=== PATIENT | female | born 1935 | race Caucasian/White ===

== ENCOUNTER → 2023-12-09 18:14 | Outpatient (REF) | payer OTHER, SELFPAY | LOC: PAVMRI 18:14 | PROVIDERS: ATTENDING PHYSICIAN Physician Assistant Medical; FAMILY PHYSICIAN Family Medicine | DX: M54.16 Radiculopathy, lumbar region (principal) | CPT/HCPCS: 72148 ==

== ENCOUNTER → 2023-12-20 10:43 | Outpatient (REF) | payer OTHER, SELFPAY ==
[2023-12-22 10:49] LABS: CA 19-9 14 U/mL (<=35)
[2023-12-22 11:08] LABS: CA 27-29 14.6 U/mL (<=39.0)
== END ==
LOC: REG 10:43
PROVIDERS: ATTENDING PHYSICIAN Nurse Practitioner Primary Care
DX: C50.811 Malignant neoplasm of overlapping sites of right female breast (principal); Z79.811 Long term (current) use of aromatase inhibitors
CPT/HCPCS: 36415; 86300; 86301

== ENCOUNTER 2024-01-01 09:35 | Emergency (ER) | payer OTHER, SELFPAY ==
[2024-01-01 09:37] VITALS: BP 125/60
--- NOTE | 2024-01-01 09:54 | ED.GENMED ---
History of Present Illness
General
Chief Complaint: Breathing Problem
Source: patient
Exam Limitations: none
Time Seen by Provider: 01/01/24 09:41
Travel History
Have you had any contact with someone who has COVID-19?: No
Do you have any symptoms of coronavirus? Fever > 100 degrees, chills, cough, shortness of breath, sore throat, loss of taste or smell, muscle aches, or headache?: No
History of Present Illness
History of Present Illness:
88 year old female presents with complaints of fatigue, sob, night sweats, myalgias x 4-days. She was presumed to have the flu and was started on Tamiflu. She has been on this for 3 days but seems to be getting worse. Prior to the onset of the
symptoms she had urinary frequency urgency and dysuria. She was started on Macrobid for UTI. No other complaints at this time. She lives independently and is accompanied by daughter
Past History
Past History
ED Past Medical History: Asthma, Cancer (Breast Ca), HTN and Hypercholesterolemia
ED Past Surgical History: None
Social History
Tobacco: Non-smoker (Has been exposed to secondhand smoke however)
Alcohol: Occasional
Personal:
Living: with family
Family History
Family History: CAD; Negative Diabetes, Hypertension, Asthma or Cancer
Phy Exam
Physical Exam
Physical Exam:
General: Well-appearing female no acute respiratory distress
HEENT: Normocephalic atraumatic neck is supple mucosa moist
Heart: Regular rate and rhythm no murmurs
Lungs: Clear to auscultation bilaterally no wheezing
Abdomen is soft nontender nondistended
Extremities: No cyanosis
Scores
Heart Failure Risk
Heart Failure Risk Score: Not Applicable
Course
Orders/Labs/Results
Orders:
Orders
01/01/24 09:51
Electrocardiogram (*1) Urgent
Reason for Study: Shortness of Breath
EKG- Treatment ONCE
CR Chest - 2 Views Urgent
Comment:
Reason For Exam: sob
01/01/24 09:55
COVID-19 Antigen Urgent
Source: Nasal Swab
Complete Blood Count/With Diff Urgent
Comprehensive Metabolic Panel Urgent
NT-proBNP Urgent
Influenza A+B Rapid Molecular Urgent
ANDER Source: Nasal Swab
Specimen Description:
01/01/24 10:17
Urinalysis Reflex To Culture Urgent
Date Specimen was Collected: 01/01/24
Time Specimen was Collected: 10:13
Urine Microscopic Reflex Cult Urgent
Urine Culture Urgent
ANDER Source: U
Specimen Description:
Date Specimen was Collected: 01/01/24
Time Specimen was Collected: 10:13
Abnormal Lab Results
01/01/24 01/01/24
09:55 10:17
RBC 3.86 L 10^6/uL
(4.20-5.40)
Hct 35.6 L %
(37.0-47.0)
MCH 31.3 H pg
(27.0-31.0)
Absolute Lymphs (auto) 1.1 L 10^3/uL
(1.2-3.4)
Absolute Eos (auto) 0.8 H 10^3/uL
(0-0.7)
Lymphocytes % 12.9 L %
(20.5-51.1)
Eosinophils % 8.8 H %
(0-6)
Potassium 3.1 L mmol/L
(3.5-5.1)
Glucose 126 H mg/dl
(70-99)
Albumin 3.4 L g/dl
(3.5-5.0)
Urine Ketones 1+ A
(Negative)
Urine Bilirubin 1+ A
(Negative)
Leukocyte Esterase Rfl Trace A
(Negative)
Urine RBC 3-6 A /HPF
(0-2)
Urine WBC (Reflex) 11-15 A /HPF
(0-5)
01/01/24 09:55
01/01/24 09:55
Vital Signs
Initial and Last Documented VS:
Initial Vital Signs
Temp Pulse Resp BP Pulse Ox
98.1 F 97 16 125/60 94
01/01/24 09:37 01/01/24 09:37 01/01/24 09:37 01/01/24 09:37 01/01/24 09:37
Last Documented Vital Signs
Temp Pulse Resp BP Pulse Ox
98.1 F 76 16 102/62 96
01/01/24 09:37 01/01/24 12:00 01/01/24 12:00 01/01/24 11:09 01/01/24 12:00
MDM/Problems Addressed
Differential Diagnosis Includes:
Fatigue myalgias shortness of breath cough urinary symptoms. Will check for COVID and flu. Consider ongoing UTI. Also notes night sweats with the cough. Will check x-ray to evaluate for pneumonia.
*Critical Care Note
Total Time (30-74mins, 75-104mins- exclusive of procedures): Not Applicable
Update Note
Update Note:
Chest x-ray shows possible left basilar pneumonia and mild pulmonary edema. BNP elevated. Clinically the patient does not look volume overloaded. She had an echocardiogram done about 11 months ago which demonstrated an EF of 70% and diastolic
function was indeterminate. Clinically she presents more as an infectious source with cough myalgias night sweats. She is not hypoxic. We ambulated her she did not drop. She is in no respiratory distress white blood cell count is normal. We
decided on having her go home with oral antibiotics. She can stop her Macrobid and Tamiflu.
ED Attending Note
-
Portions of this chart may have been created with voice recognition software.� Occasional wrong word or��sound alike� substitutions may have occurred due to the inherent limitations of voice recognition software.
Discharge Plan
Departure
Patient Disposition: Home (Routine Discharge)
Date of Disposition: 01/01/24
Time of Disposition: 12:29
Patient with high blood pressure during this ER visit?: No
Discharge Problem:
Pneumonia
Instructions: Shortness of Breath (Dyspnea) (DC)
Prescriptions:
New
cefdinir 300 mg capsule
300 mg PO BID Qty: 14 0RF
azithromycin [Zithromax] 250 mg tablet
250 mg PO DAILY Qty: 6 0RF
No Action
simvastatin 20 MG tablet
20 mg PO DAILY
escitalopram oxalate 20 MG tablet
20 mg PO DAILY
ascorbic acid (vitamin C) [Vitamin C] 1,000 MG tablet
1,000 mg PO DAILY
acetaminophen [Tylenol Extra Strength] 500 MG tablet
1,000 mg PO PRN PRN (Reason: pain)
lybrenwd-xsc-KW-lycopen-lutein [Centrum Silver] 1 EACH tablet
1 ea PO DAILY
glucosam-chond mu-wlttex-us ac 1 EACH capsule
1 cap PO DAILY
calcium carbonate [Calcium 600] 600 MG tablet
1,200 mg PO DAILY
diltiazem HCl 180 MG capsule,extended release 24hr
180 mg PO QPM Qty: 0 0RF
lisinopril 20 MG tablet
20 mg PO DAILY Qty: 0 0RF
Rx Instructions:
hold sbp <130
docusate sodium 100 MG capsule
100 mg PO BID Qty: 0 0RF
hydrochlorothiazide 25 MG tablet
25 mg PO DAILY Qty: 0 0RF
Rx Instructions:
hold sbp <130
cholecalciferol (vitamin D3) 1,000 UNITS tablet
5,000 units PO DAILY Qty: 0 0RF
trazodone 50 MG tablet
50 mg PO HS PRN (Reason: insomnia)
Referrals:
Sean Salazar MD [Family Provider] -
Activity Restrictions/Additional Instructions:
Drink plenty of fluids. Rest. Use antibiotics as directed. You should stop the nitrofurantoin as well as the Tamiflu and started 2 new prescriptions. Return here for increasing shortness of breath fever vomiting or other concerning findings.
Interventions
Interventions:
*Risk Screen - Suicide Last Done: 01/01/24 11:07
*General Assessment Last Done: 01/01/24 11:07
*Neglect/Abuse Screening Last Done: 01/01/24 11:07
ED- Fall Risk Assessment Last Done: 01/01/24 11:07
*ED COVID-19 Vaccine History Last Done: 01/01/24 09:37
ED- Cardiac Assessment Last Done: 01/01/24 11:07
ED- Pulmonary Assessment Last Done: 01/01/24 11:07
[2024-01-01 10:09] LABS: % Basophils 0.9 % (0-2); % Eosinophils 8.8 % (0-6); % Immature Granulocytes 0.2 % (0-0.5); % Lymphocytes 12.9 % (20.5-51.1); % Monocytes 7.3 % (1.7-9.3); % Neutrophils 69.9 % (42.2-75.2); Absolute Basophils 0.1 10^3/uL (0-0.2); Absolute Eosinophils 0.8 10^3/uL (0-0.7); Absolute Lymphocytes 1.1 10^3/uL (1.2-3.4); Absolute Monocytes 0.6 10^3/uL (0.1-0.6); Hematocrit 35.6 % (37.0-47.0); Hemoglobin 12.1 g/dL (12.0-16.0); Mean Corpuscular Hgb 31.3 pg (27.0-31.0); Mean Corpuscular Volume 92.2 fL (81.0-99.0); Mean Platelet Volume 9.6 fL (7.4-10.4); Nucleated Red Blood Cells % 0 %; Platelet Count 275 10^3/uL (130-400); Red Blood Cell Count 3.86 10^6/uL (4.20-5.40); Red Cell Dist. Width 12.1 % (11.5-14.5); White Blood Cell Count 8.6 10^3/uL (4.8-10.8)
[2024-01-01 10:21] LABS: COVID-19 Antigen Negative (Negative)
[2024-01-01 10:24] LABS: ALT (SGPT) 21 U/L (0-35); AST (SGOT) 28 U/L (14-36); Albumin 3.4 g/dl (3.5-5.0); Alkaline Phosphatase 68 U/L (38-126); Blood Urea Nitrogen 15 mg/dl (7-17); Calcium 8.6 mg/dl (8.4-10.2); Carbon Dioxide 27 mmol/L (22-30); Chloride 102 mmol/L (98-107); Glucose 126 mg/dl (70-99); Potassium 3.1 mmol/L (3.5-5.1); Sodium 135 mmol/L (135-145); Total Bilirubin 0.7 mg/dl (0.2-1.3); Total Protein 6.4 g/dl (6.3-8.2); eGFR > 60.00
[2024-01-01 10:29] LABS: NT-proBNP 2160 pg/ml
[2024-01-01 11:07] VITALS: BMI 24.3
[2024-01-01 11:09] VITALS: BP 102/62
[2024-01-01 11:11] LABS: Urine Albumin Negative (Neg - Trace); Urine Bilirubin 1+ (Negative); Urine Character Clear (Clear); Urine Color Yellow; Urine Glucose Negative (Negative); Urine Ketone 1+ (Negative); Urine Leukocyte Trace (Negative); Urine Nitrite Negative (Negative); Urine Occult Blood Negative (Negative); Urine Urobilinogen Negative (Neg - 1+)
== END 2024-01-01 13:30 | disposition home or self-care (01) ==
LOC: EMR 09:35
PROVIDERS: Physician Assistant; EMERGENCY PHYSICIAN Emergency Medicine; FAMILY PHYSICIAN Family Medicine
DX: J18.9 Pneumonia, unspecified organism (principal); Z11.52 Encounter for screening for COVID-19
CPT/HCPCS: 99285; 71046; 80053; 81003; 81015; 83880; 85025; 87086; 87502; 87811; 93005

== ENCOUNTER → 2024-03-26 08:51 | Outpatient (REF) | payer OTHER, SELFPAY ==
[2024-03-26 10:24] LABS: Urine Albumin Negative (Neg - Trace); Urine Bilirubin Negative (Negative); Urine Character Clear (Clear); Urine Color Yellow; Urine Glucose Negative (Negative); Urine Ketone Negative (Negative); Urine Leukocyte 1+ (Negative); Urine Nitrite Negative (Negative); Urine Occult Blood Negative (Negative); Urine Specific Gravity 1.015 (<1.030); Urine Urobilinogen Negative (Neg - 1+)
[2024-03-26 10:26] LABS: % Eosinophils 3.3 % (0-6); % Lymphocytes 28.6 % (20.5-51.1); % Monocytes 6.7 % (1.7-9.3); % Neutrophils 60.4 % (42.2-75.2); Absolute Basophils 0.1 10^3/uL (0-0.2); Absolute Eosinophils 0.2 10^3/uL (0-0.7); Absolute Lymphocytes 1.4 10^3/uL (1.2-3.4); Absolute Monocytes 0.3 10^3/uL (0.1-0.6); Hematocrit 37.6 % (37.0-47.0); Hemoglobin 12.4 g/dL (12.0-16.0); Mean Corpuscular Hgb 31.7 pg (27.0-31.0); Mean Corpuscular Volume 96.2 fL (81.0-99.0); Mean Platelet Volume 10.3 fL (7.4-10.4); Nucleated Red Blood Cells % 0 %; Platelet Count 225 10^3/uL (130-400); Red Blood Cell Count 3.91 10^6/uL (4.20-5.40); Red Cell Dist. Width 12.8 % (11.5-14.5); White Blood Cell Count 4.9 10^3/uL (4.8-10.8)
[2024-03-26 10:58] LABS: Erythrocyte Sed Rate 8 mm/hour (0-20)
[2024-03-26 11:09] LABS: Urine Mucus Few
[2024-03-26 11:10] LABS: Urine Squamous Cell >30 /LPF (Few)
[2024-03-26 11:11] LABS: Urine Amorphous Seen; Urine Red Blood Cell 0-2 /HPF (0-2)
[2024-03-26 11:12] LABS: ALT (SGPT) 17 U/L (0-35); AST (SGOT) 29 U/L (14-36); Alkaline Phosphatase 63 U/L (38-126); Blood Urea Nitrogen 17 mg/dl (7-17); Calcium 9.1 mg/dl (8.4-10.2); Carbon Dioxide 30 mmol/L (22-30); Chloride 102 mmol/L (98-107); Creatine Phosphokinase 66 U/L (30-135); Glucose 95 mg/dl (70-99); HDL Cholesterol 69 mg/dl; LDL Cholesterol, Calculated 81 mg/dl; Potassium 4.2 mmol/L (3.5-5.1); Sodium 139 mmol/L (135-145); Total Bilirubin 0.5 mg/dl (0.2-1.3); Total Cholesterol 165 mg/dl (50-199); Total Protein 7.1 g/dl (6.3-8.2); Triglyceride 79 mg/dl (10-149); Uric Acid 4.9 mg/dl (2.5-6.2); Urine Bacteria Few (Negative); Very Low Density Lipoprotein 15 mg/dl (0-30); eGFR > 60.00
[2024-03-26 11:24] LABS: Free T4 1.05 ng/dl (0.78-2.19); Vitamin D, 25-OH*** 35.7 ng/mL (30-80)
[2024-03-26 11:38] LABS: TSH 2.18 uIU/ml (0.47-4.68)
[2024-03-26 11:50] LABS: Glycohemoglobin (HgbA1c) 5.5 % (4.0-5.6)
[2024-03-26 21:15] LABS: Hepatitis B Surface Antigen Negative (Negative)
[2024-03-26 21:33] LABS: Hepatitis B Core Ab, Total Negative (Negative); Hepatitis B Surface Antibody Negative; Hepatitis C Antibody Negative (Negative)
[2024-03-27 14:26] LABS: CRP, Highly Sensitive 0.53 mg/L
[2024-03-27 18:26] LABS: Apolipoprotein B 79 mg/dL (60-117)
== END ==
LOC: REG 08:51
PROVIDERS: ATTENDING PHYSICIAN Internal Medicine Cardiovascular Disease; FAMILY PHYSICIAN Family Medicine
DX: R89.9 Unspecified abnormal finding in specimens from other organs, systems and tissues (principal); E78.2 Mixed hyperlipidemia; Z00.00 Encounter for general adult medical examination without abnormal findings; I25.10 Atherosclerotic heart disease of native coronary artery without angina pectoris; E78.00 Pure hypercholesterolemia, unspecified; I10 Essential (primary) hypertension; E55.9 Vitamin D deficiency, unspecified; Z13.818 Encounter for screening for other digestive system disorders; Z11.59 Encounter for screening for other viral diseases
CPT/HCPCS: 36415; 80053; 80061; 81003; 81015; 82172; 82306; 82550; 83036; 84439; 84443; 84550; 85025; 85652; 86141; 86704; 86706; 86803; 87340

== ENCOUNTER → 2024-06-11 13:38 | Outpatient (REF) | payer OTHER, SELFPAY | LOC: MRI 3T 13:38 | PROVIDERS: ATTENDING PHYSICIAN Physician Assistant Surgical; FAMILY PHYSICIAN Family Medicine | DX: M25.562 Pain in left knee (principal) | CPT/HCPCS: 73721 ==

== ENCOUNTER → 2024-07-23 12:39 | Outpatient (REF) | payer OTHER, SELFPAY | LOC: WDC 12:39 | PROVIDERS: ATTENDING PHYSICIAN Family Medicine | DX: Z12.31 Encounter for screening mammogram for malignant neoplasm of breast (principal) | CPT/HCPCS: 77063; 77067 ==

== ENCOUNTER → 2024-09-08 07:49 | Outpatient (REF) | payer OTHER, SELFPAY ==
[2024-09-08 08:49] LABS: % Basophils 0.9 % (0-2); % Eosinophils 3.7 % (0-6); % Immature Granulocytes 0.2 % (0-0.5); % Lymphocytes 27.6 % (20.5-51.1); % Monocytes 7.4 % (1.7-9.3); % Neutrophils 60.2 % (42.2-75.2); Absolute Basophils 0.1 10^3/uL (0-0.2); Absolute Eosinophils 0.2 10^3/uL (0-0.7); Absolute Lymphocytes 1.5 10^3/uL (1.2-3.4); Absolute Monocytes 0.4 10^3/uL (0.1-0.6); Absolute Neutrophils 3.3 10^3/uL (1.4-6.5); Hematocrit 34.6 % (37.0-47.0); Mean Corp Hgb Conc. 34.7 g/dL (33.0-37.0); Mean Corpuscular Hgb 31.9 pg (27.0-31.0); Mean Platelet Volume 10.1 fL (7.4-10.4); Nucleated Red Blood Cells % 0 %; Platelet Count 229 10^3/uL (130-400); Red Blood Cell Count 3.76 10^6/uL (4.20-5.40); Red Cell Dist. Width 12.1 % (11.5-14.5); White Blood Cell Count 5.4 10^3/uL (4.8-10.8)
[2024-09-08 09:28] LABS: ALT (SGPT) 20 U/L (0-35); AST (SGOT) 28 U/L (14-36); Albumin 3.9 g/dl (3.5-5.0); Alkaline Phosphatase 51 U/L (38-126); Blood Urea Nitrogen 20 mg/dl (7-17); Calcium 9.6 mg/dl (8.4-10.2); Carbon Dioxide 29 mmol/L (22-30); Chloride 104 mmol/L (98-107); Glucose 98 mg/dl (70-99); Potassium 5.1 mmol/L (3.5-5.1); Sodium 142 mmol/L (135-145); Total Bilirubin 0.4 mg/dl (0.2-1.3); Total Protein 6.6 g/dl (6.3-8.2); eGFR > 60.00
== END ==
LOC: REG 07:49
PROVIDERS: ATTENDING PHYSICIAN Nurse Practitioner Primary Care; FAMILY PHYSICIAN Family Medicine
DX: C50.811 Malignant neoplasm of overlapping sites of right female breast (principal); Z79.811 Long term (current) use of aromatase inhibitors
CPT/HCPCS: 36415; 80053; 85025

== ENCOUNTER 2024-10-08 20:36 | Inpatient (IN) | payer OTHER, SELFPAY ==
[2024-10-08 16:13] VITALS: BP 117/74
[2024-10-08 16:43] LABS: Urine Albumin Trace (Neg - Trace); Urine Bilirubin Negative (Negative); Urine Character Clear (Clear); Urine Color Yellow; Urine Glucose Negative (Negative); Urine Ketone 1+ (Negative); Urine Leukocyte 2+ (Negative); Urine Nitrite Negative (Negative); Urine Occult Blood Negative (Negative); Urine Specific Gravity 1.015 (<1.030); Urine Urobilinogen Negative (Neg - 1+)
[2024-10-08 16:49] LABS: % Basophils 0.4 % (0-2); % Eosinophils 0.5 % (0-6); % Immature Granulocytes 0.4 % (0-0.5); % Monocytes 3.7 % (1.7-9.3); Absolute Basophils 0.1 10^3/uL (0-0.2); Absolute Eosinophils 0.1 10^3/uL (0-0.7); Absolute Immature Granulocytes 0.1 10^3/uL (0-0.05); Absolute Lymphocytes 0.8 10^3/uL (1.2-3.4); Absolute Monocytes 0.6 10^3/uL (0.1-0.6); Absolute Neutrophils 14.8 10^3/uL (1.4-6.5); Hematocrit 37.4 % (37.0-47.0); Hemoglobin 12.7 g/dL (12.0-16.0); Mean Corpuscular Hgb 31.6 pg (27.0-31.0); Mean Platelet Volume 9.7 fL (7.4-10.4); Nucleated Red Blood Cells % 0 %; Platelet Count 262 10^3/uL (130-400); Red Blood Cell Count 4.02 10^6/uL (4.20-5.40); Red Cell Dist. Width 12.3 % (11.5-14.5); White Blood Cell Count 16.4 10^3/uL (4.8-10.8)
[2024-10-08 16:51] LABS: Urine Mucus Moderate
[2024-10-08 16:52] LABS: Urine Bacteria Moderate (Negative); Urine Red Blood Cell 0-2 /HPF (0-2); Urine White Cell 26-30 /HPF (0-5)
[2024-10-08 16:57] LABS: Lactic Acid 1.4 mmol/L (0.7-2.0)
[2024-10-08 17:05] VITALS: BMI 24.6
[2024-10-08 17:08] LABS: ALT (SGPT) 21 U/L (0-35); AST (SGOT) 29 U/L (14-36); Albumin 4.1 g/dl (3.5-5.0); Alkaline Phosphatase 52 U/L (38-126); Blood Urea Nitrogen 18 mg/dl (7-17); Calcium 8.8 mg/dl (8.4-10.2); Carbon Dioxide 27 mmol/L (22-30); Glucose 138 mg/dl (70-99); Total Bilirubin 0.8 mg/dl (0.2-1.3); Total Protein 6.9 g/dl (6.3-8.2); eGFR > 60.00
--- NOTE | 2024-10-08 17:21 | ED.GENMED ---
History of Present Illness
General
Chief Complaint: Fever
Source: patient and family
Exam Limitations: none
Time Seen by Provider: 10/08/24 16:52
Nursing documentation reviewed up to this point in time: agreed with
History of Present Illness
History of Present Illness:
88-year-old female accompanied by her daughters presents with fever and confusion few days of urinary frequency and urgency saw her PCP started on Macrobid had 2 doses today daughter found her in the bed confused temperature 103 patient is had
bodyaches not as active is normal, some confusion, some mild cough has had a flu and COVID shot apparently no history of kidney stones
Past History
Past History
ED Past Medical History: Asthma, Cancer (Breast Ca), HTN and Hypercholesterolemia
ED Past Surgical History: None
Social History
Tobacco: Non-smoker (Has been exposed to secondhand smoke however)
Alcohol: Occasional
Drug: None
Personal:
Living: with family
Employment: Retired
Family History
Family History: CAD; Negative Diabetes, Hypertension, Asthma or Cancer
Review of Systems
Review of Systems
All Other Systems: Not applicable
Constitutional: Reports fever and fatigue
EENT: Reports no symptoms
Respiratory: Reports cough
Cardiac: Reports no symptoms
ABD/GI: Reports nausea; Denies diarrhea
: Reports frequency, flank pain and urgency
Musculoskeletal: Reports muscle pain
Neurological: Reports weakness
Phy Exam
Physical Exam
Physical Exam:
Physical Exam
General: 88 female warm to touch slightly confused
Neck: Lips are dry
Heart: Tachycardia
Lungs: No wheeze
Abdomen: Nontender no CVAT
Neuro: alert and oriented. no focal neurological deficits
Skin: no rash
Psychiatric: cooperative
Extremities: no edema.
Course
Orders/Labs/Results
Orders:
Orders
12/12/24 16:37
Complete Blood Count/With Diff Urgent
Comprehensive Metabolic Panel Urgent
Lactic Acid Urgent
UA Reflex to Culture [Urinalysis Reflex To Culture] Urgent
Date Specimen was Collected: 10/08/24
Time Specimen was Collected: 16:19
Urine Microscopic Reflex Cult Urgent
Urine Culture Urgent
ANDER Source: U
Specimen Description:
Date Specimen was Collected: 10/08/24
Time Specimen was Collected: 16:19
10/08/24 17:12
Cardiac Monitoring- Treatment ONCE
0.9% Sodium Chloride 1000 ml [Nss] 2,100 ml IV NOW STA
0.9% Sodium Chloride 1000 ml [Nss] 1,000 ml IV BOLUS
CefTRIAXone [Rocephin] 1,000 mg IV NOW STA
Ketorolac [Toradol] 15 mg IV NOW STA
10/08/24 17:13
Electrocardiogram (*1) Urgent
Reason for Study: Other
Other Reason for Exam: sepsis
CT Abd/pel Without Iv Or Oral Urgent
Comment:
Reason For Exam: uro sepsis roland pain
EKG- Treatment ONCE
CR Chest - 2 Views Urgent
Comment:
Reason For Exam: fever
10/08/24 17:15
Lactic Acid Q4H
Comment: CANCEL 2nd LACTIC ACID IF 1st LACTIC ACID IS LESS THAN 2
10/08/24 17:31
COVID-19 Antigen Urgent
Source: Nasal Swab
Blood Culture Q30M
ANDER Source: Blood/Venous
Specimen Description:
Blood Culture Q30M
ANDER Source: Blood/Venous
Specimen Description:
Influenza A+B Rapid Molecular Urgent
ANDER Source: Nasal Swab
Specimen Description:
10/08/24 21:15
Lactic Acid Q4H
Comment: CANCEL 2nd LACTIC ACID IF 1st LACTIC ACID IS LESS THAN 2
Abnormal Lab Results
10/08/24
16:37
WBC 16.4 H 10^3/uL
(4.8-10.8)
RBC 4.02 L 10^6/uL
(4.20-5.40)
MCH 31.6 H pg
(27.0-31.0)
Abs Immat Gran (auto) 0.1 H 10^3/uL
(0-0.05)
Absolute Neuts (auto) 14.8 H 10^3/uL
(1.4-6.5)
Absolute Lymphs (auto) 0.8 L 10^3/uL
(1.2-3.4)
Neutrophils % 90.0 H %
(42.2-75.2)
Lymphocytes % 5.0 L %
(20.5-51.1)
BUN 18 H mg/dl
(7-17)
Glucose 138 H mg/dl
(70-99)
Urine Ketones 1+ A
(Negative)
Leukocyte Esterase Rfl 2+ A
(Negative)
Urine WBC (Reflex) 26-30 A /HPF
(0-5)
Urine Bacteria (Reflex) Moderate A
(Negative)
10/08/24 16:37
10/08/24 16:37
Vital Signs
Initial and Last Documented VS:
Initial Vital Signs
Temp Pulse Resp BP Pulse Ox
100.2 F 93 18 117/74 93
10/08/24 16:13 10/08/24 16:13 10/08/24 16:13 10/08/24 16:13 10/08/24 16:13
Last Documented Vital Signs
Temp Pulse Resp BP Pulse Ox
100.2 F 93 18 105/47 91
10/08/24 16:13 10/08/24 16:13 10/08/24 16:13 10/08/24 18:19 10/08/24 17:45
MDM/Problems Addressed
Differential Diagnosis Includes:
UTI pyelonephritis ureteral stone influenza COVID
MDM/Problems Addressed:
Fever
Chronic conditions affecting care:
Hypertension
Acute Exacerbation and/or Progression of Chronic Illness:
Hypertension
*EKG
Interpreted by ED Provider?: Yes
EKG Intrepretation Date: 10/08/24
Interpretation: normal
Comparison EKG: no comparison EKG present
Heart Rate: 88
Rate: normal
Rhythm: sinus
Ischemia: no ischemia
*Railroad Signal Operator Interpretation
Rate: tachycardiac
Interpretation: abnormal
Heart Rate: 112
Rhythm: sinus
*Critical Care Note
Total Time (30-74mins, 75-104mins- exclusive of procedures): 15
Update Note
Update Note:
Update labs are noted white count up cultures are pending viral swabs are negative CT scan no obstruction
ED Attending Note
-
Portions of this chart may have been created with voice recognition software.� Occasional wrong word or��sound alike� substitutions may have occurred due to the inherent limitations of voice recognition software.
Discharge Plan
Departure
Patient Disposition: Admit
Date of Disposition: 10/08/24
Time of Disposition: 18:52
Admit to: Med/Surg
Presentation/result/management discussed w/ accepting MD/DO: Hospitalist
Condition: Fair
Covid-19: Negative COVID-19
Discharge Problem:
Urosepsis
Prescriptions:
No Action
simvastatin 20 MG tablet
20 mg PO DAILY
escitalopram oxalate 20 MG tablet
20 mg PO DAILY
ascorbic acid (vitamin C) [Vitamin C] 1,000 MG tablet
1,000 mg PO DAILY
acetaminophen [Tylenol Extra Strength] 500 MG tablet
1,000 mg PO PRN PRN (Reason: pain)
tbbxnlxc-zor-YR-lycopen-lutein [Centrum Silver] 1 EACH tablet
1 ea PO DAILY
glucosam-chond tk-tgjqzq-ew ac 1 EACH capsule
1 cap PO DAILY
calcium carbonate [Calcium 600] 600 MG tablet
1,200 mg PO DAILY
diltiazem HCl 180 MG capsule,extended release 24hr
180 mg PO QPM Qty: 0 0RF
lisinopril 20 MG tablet
20 mg PO DAILY Qty: 0 0RF
Rx Instructions:
hold sbp <130
docusate sodium 100 MG capsule
100 mg PO BID Qty: 0 0RF
hydrochlorothiazide 25 MG tablet
25 mg PO DAILY Qty: 0 0RF
Rx Instructions:
hold sbp <130
cholecalciferol (vitamin D3) 1,000 UNITS tablet
5,000 units PO DAILY Qty: 0 0RF
trazodone 50 MG tablet
50 mg PO HS PRN (Reason: insomnia)
cefdinir 300 mg capsule
300 mg PO BID Qty: 14 0RF
azithromycin [Zithromax] 250 mg tablet
250 mg PO DAILY Qty: 6 0RF
Referrals:
UNKNOWN - PT DOES,NOT KNOW [Unknown Provider] -
Interventions
Interventions:
*Risk Screen - Suicide Last Done: 10/08/24 16:13
*General Assessment Last Done: 10/08/24 17:05
*Neglect/Abuse Screening Last Done: 10/08/24 17:05
ED- Fall Risk Assessment Last Done: 10/08/24 17:05
*ED COVID-19 Vaccine History Last Done: 10/08/24 17:05
ED- Neurological Assessment Last Done: 10/08/24 17:05
ED-Skin Assessment Last Done: 10/08/24 17:05
Discharge Date and Time
Print Language: AZERBAIJANI
[2024-10-08 17:29] VITALS: BP 103/51
[2024-10-08] MEDS: ROCEPHIN 1000 MG IV (17:39)
[2024-10-08] MEDS: NSS 2100 ML IV (17:39)
[2024-10-08] MEDS: TORADOL 15 MG IV (17:39)
[2024-10-08 18:09] LABS: Chloride 100 mmol/L (98-107); Potassium 3.5 mmol/L (3.5-5.1); Sodium 136 mmol/L (135-145)
[2024-10-08 18:19] VITALS: BP 105/47
--- NOTE | 2024-10-08 19:27 | HPS.HSE ---
Family Physician
-
Family Physician: Sean Salazar
Chief Complaint
-
Rigors, fever, dysuria, urgency, frequency
History of Present Illness
88-year-old female who states yesterday she was baking 500 cookies with her daughters and felt well. This morning she woke up and did not feel right. She took her temperature which was 99.6. She called her daughter who is a nurse who had her take
some Tylenol due to reported body aches. Her daughter went by her house a little after 3 PM to check on her when she arrived at the patient's home the patient had a temperature of 103 she had rigors was complaining of headache was having difficulty
following her commands for example she told her to stay downstairs next thing she knew she was upstairs next to her. Patient is currently awake alert oriented she did have temperature in the ER of 100.2 F she is complaining of some mild dysuria,
urgency and frequency along with rigors earlier and headache. She denies flank pain, hematuria, sore throat, chest pain, palpitations, shortness breath, cough, abdominal pain, nausea, vomiting, diarrhea, urinary symptoms. She has past medical
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
anemia, anxiety, seasonal allergies.
Medical History
Past Medical History
Past Medical History: Reports Other
Additional Past Medical History:
UTIs
HTN
HLD
right sided breast cancer status post right mastectomy 2019 with chemotherapy x 1 year, chronic tamoxifen
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
osteoarthritis
chronic lumbar back pain
iron deficiency anemia
anxiety
seasonal allergies
Past Surgical History: Reports Other
Additional Past Surgical History:
Chronic lumbar pain status post lower back surgery 2004
ORIF right hip September 2004
Left thumb surgery 04/04/2014
Tonsillectomy as child
D&C
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
Right mastectomy secondary to breast cancer
Left chest wall port placed
Social History
Tobacco: Non-smoker
Alcohol: Occasional (Holidays)
Drug: None
Personal: Single
Living: Alone
Employment: Retired
Family History
Family History: Not pertinent
Allergies / Home Medications
Allergies reflects when Allergies were last updated in [employer].
Home Medications with original date entered in [employer]
Allergy/Medication List:
Allergies
Allergy/AdvReac Type Severity Reaction Status Date / Time
adhesive Allergy Rash Verified 10/08/24 16:12
adhesive tape Allergy Rash Verified 10/08/24 16:12
Home Medications
simvastatin 20 mg tablet 20 mg PO DAILY 11/26/11
escitalopram oxalate 10 mg tablet 10 mg PO DAILY 10/08/24
lisinopril 20 mg-hydrochlorothiazide 25 mg tablet 1 tab PO DAILY 10/08/24
loratadine 10 mg tablet (Claritin) 10 mg PO DAILY 10/08/24
nitrofurantoin monohydrate/macrocrystals 100 mg capsule 100 mg PO BID 10/08/24
tamoxifen 20 mg tablet 20 mg PO DAILY 10/08/24
Review of Systems
-
History Source: Patient and Family (2 daughters at bedside)
A 12 point ROS was completed and negative except as noted: Yes
Constitutional: Reports Fever, Fatigue and Chills (Rigors)
EENT: Denies Sore Throat, Mouth Pain or Runny Nose
Respiratory: Denies Cough or Hemoptysis
Cardiac: Denies Chest Pain, Diaphoresis, Palpitations or Syncope
Abdomen/GI: Denies Abdominal Pain, Nausea, Vomiting, Diarrhea, Constipated, Bloody Stools, Black Stools or Anorexia
: Reports Dysuria, Frequency and Urgency; Denies Flank Pain, Incontinence, Difficulty Voiding, Bleeding, Dark Urine or Discharge
Musculoskeletal: Denies Joint Pain or Edema
Skin: Denies Itching or Rash
Neurological: Reports Headache; Denies Dizzy or Weakness
Endocrine: Reports No Symptoms
Hematologic/Lymphatic: Reports No Symptoms
Psych: Reports Calm
Physical Exam
Vital Signs
Vital Signs
Temp Pulse Resp BP Pulse Ox
100.2 F 93 18 105/47 91
10/08/24 16:13 10/08/24 16:13 10/08/24 16:13 10/08/24 18:19 10/08/24 17:45
Physical Exam
General: Comfortable, Conversant and Fever; No Pain or Chills
HEENT: NormoCephalic, Anicteric, Moist mucous membranes, PERRLA, [place] Conjunctivae, No Ptosis and Neck Nontender
Respiratory: Clear; No Wheezes, Rales or Rhonchi
Cardiac: S1/S2 and Regular Rhythm; No Murmur, Rub, Gallop or Peripheral Edema
Breast: Deferred by me
GI: Soft, Non Tender, Non Distended, Normal Bowel Sounds and No Hepatosplenomegaly
Rectal: Deferred by Provider
Genito-urinary: Deferred by me
Musculoskeletal: No Clubbing, No Cyanosis and No Edema
Skin: Warm and Dry; No Rash or Jaundice
Neuro: AO x 3, No Motor Deficits, Nonfocal/grossly intact and No Sensory Deficits; No Slurred Speech, Facial Droop, Tremors or Sedated
Psych: Calm
Laboratory Results
-
10/08/24 16:37
10/08/24 16:37
Laboratory Results
Lactic Acid 1.4 mmol/L (0.7-2.0) 10/08/24 16:37
Total Bilirubin 0.8 mg/dl (0.2-1.3) 10/08/24 16:37
AST 29 U/L (14-36) 10/08/24 16:37
ALT 21 U/L (0-35) 10/08/24 16:37
Alkaline Phosphatase 52 U/L (38-126) 10/08/24 16:37
Data Reviewed
-
Diagnostic Radiology: Report Reviewed by me
CT Scan: Report Reviewed by me
Lab Data: Labs Reviewed by me
Impression/Plan
-
Impression/plan:
Admit to telemetry
#Sepsis secondary to UTI
103/51, HR 93, 100.2 F, 91% RA
-WBC 16.4 with left shift
-Blood cultures x 2
-IV NSS 3 L sepsis bolus given in ER, continue IV NSS 100 cc/h
-IV Rocephin
-Follow blood and urine cultures, CBC, CMP
-Tylenol as needed fever
CT abdomen pelvis without IV or oral contrast:
1. No significant acute abnormality identified in the abdomen or pelvis within limits of unenhanced CT
2. Trace pleural effusion
CXR: No acute cardiopulmonary process
#Hypotension secondary to sepsis/HTN�benign
IV NSS 1000 mg given in ER
-Hold lisinopril/HCTZ
#HLD
-Continue simvastatin 20 mg daily
#Right breast cancer status postmastectomy 2019
#Chronic neuropathy to fingers/feet from chemotherapy after 2019
Patient reports get approximately 1 year of chemotherapy at [facility]
-Continue tamoxifen 20 mg daily
#Osteoarthritis
-Reported meds
#Chronic lumbar back pain
# S/P Chronic lumbar pain status post lower back surgery 2004
#Iron deficiency anemia
Hgb 12.7�stable
#Anxiety
-Continue Lexapro 10 mg daily
#Seasonal allergies
-Continue Claritin 10 mg daily
DVT prophylaxis
Subcu Lovenox
Full code
[2024-10-08 19:34] LABS: COVID-19 Antigen Negative (Negative)
--- NOTE | 2024-10-08 20:10 | W.PN.UPDATE ---
Update Note
Progress Note Update
This is an addendum to the H&P written by Rosalba Barone on 10/08/2024. Patient seen and examined independently with [employer].
88-year-old female with past medical history of breast cancer, hypertension, hypercholesteremia, asthma, presenting with weakness, low-grade fever since yesterday, dysuria. Urinalysis suggestive of UTI. COVID and influenza negative. Chest x-ray
unremarkable. CT abdomen pelvis unremarkable.
IV fluids, urine culture, blood cultures pending. Ceftriaxone. Hold lisinopril/hydrochlorothiazide.
[2024-10-08 21:15] VITALS: BP 120/52; BMI 24.6
[2024-10-08] MEDS: NSS 1000 IV (21:24)
--- NOTE | 2024-10-08 22:00 | PTCARENOTE ---
Pt transported from ED to 3W via stretcher. Pt 1 assist from stretcher to bed, vitals signs obtained and stable, IV NS @100. Pt AAOx3, oriented to room, call molina within reach. Will continue to monitor.
[2024-10-08] MEDS: MELATONIN 5 MG PO (22:28)
[2024-10-08 23:33] VITALS: BP 100/48
[2024-10-09] VITALS (7 sets, daily range): BP systolic 106–130; BP diastolic 52–68; PULSE 89–102; O2SAT 95
[2024-10-09 06:44] LABS: % Basophils 0.5 % (0-2); % Eosinophils 5.1 % (0-6); % Immature Granulocytes 0.6 % (0-0.5); % Lymphocytes 8.6 % (20.5-51.1); % Monocytes 5.1 % (1.7-9.3); % Neutrophils 80.1 % (42.2-75.2); Absolute Basophils 0.1 10^3/uL (0-0.2); Absolute Eosinophils 0.5 10^3/uL (0-0.7); Absolute Immature Granulocytes 0.1 10^3/uL (0-0.05); Absolute Lymphocytes 0.9 10^3/uL (1.2-3.4); Absolute Monocytes 0.5 10^3/uL (0.1-0.6); Absolute Neutrophils 8.4 10^3/uL (1.4-6.5); Hematocrit 30.6 % (37.0-47.0); Hemoglobin 10.2 g/dL (12.0-16.0); Mean Corp Hgb Conc. 33.3 g/dL (33.0-37.0); Mean Corpuscular Hgb 31.5 pg (27.0-31.0); Mean Corpuscular Volume 94.4 fL (81.0-99.0); Mean Platelet Volume 10.3 fL (7.4-10.4); Nucleated Red Blood Cells % 0 %; Platelet Count 205 10^3/uL (130-400); Red Blood Cell Count 3.24 10^6/uL (4.20-5.40); Red Cell Dist. Width 12.6 % (11.5-14.5); White Blood Cell Count 10.5 10^3/uL (4.8-10.8)
[2024-10-09 07:09] LABS: ALT (SGPT) 17 U/L (0-35); AST (SGOT) 21 U/L (14-36); Albumin 2.9 g/dl (3.5-5.0); Alkaline Phosphatase 43 U/L (38-126); Blood Urea Nitrogen 18 mg/dl (7-17); Calcium 7.4 mg/dl (8.4-10.2); Carbon Dioxide 24 mmol/L (22-30); Chloride 104 mmol/L (98-107); Estimated Creatinine Clearance 54 ml/min; Glucose 90 mg/dl (70-99); Potassium 2.9 mmol/L (3.5-5.1); Sodium 137 mmol/L (135-145); Total Bilirubin 0.5 mg/dl (0.2-1.3); Total Protein 5.5 g/dl (6.3-8.2); eGFR > 60.00
[2024-10-09] MEDS: LIPITOR 10 MG PO (08:25)
[2024-10-09] MEDS: LEXAPRO 10 MG PO (08:26)
[2024-10-09] MEDS: NOLVADEX 20 MG PO (08:27)
[2024-10-09] MEDS: CLARITIN 10 MG PO (08:27)
[2024-10-09] MEDS: KCL 40 MEQ PO (08:48)
--- NOTE | 2024-10-09 08:58 | W.PN.UPDATE ---
Update Note
Progress Note Update
I saw and evaluated the patient. I reviewed the resident�s note and agree with findings and plan as documented in the resident�s note.
Denies CP/SOB/abd pain.
Gen: NAD, Awake and alert
Eyes: EOMI, PERRLA, no scleral icterus.
Neck: supple.
CV: RRR, +S1/S2, no m/r/g.
Resp: CTAB, no rales, wheezes, or rhonchi.
Abd: +BS, soft, NT, ND
Skin: No rashes.
Neuro: CN 2-12 intact, non-focal.
Psych: Normal mood and affect.
CT A/P (no contrast):
1. No significant acute abnormality identified in the abdomen or pelvis within limits of unenhanced CT
2. Trace pleural effusion
CXR: No acute cardiopulmonary process
Sepsis secondary to UTI:
-s/p IVF bolus on admission for hypotension
-cont IVFs
-cont Rocephin
-leukocytosis has resolved
-follow BCx/UCx
Other problems:
HLD: cont statin
R breast CA s/p mastectomy/chemo 2019 with resultant chronic peripheral neuropathy: Cont tamoxifen
Osteoarthritis
Chronic lumbar back pain
h/o Fe def anemia
Anxiety: cont Lexapro
DNR/Lovenox
--- NOTE | 2024-10-09 10:53 | W.PN.HOSP.TC ---
Today's Communication/Plan
-
Continue care as before
Follow urine culture, blood culture
Assessment / Plan
Assessment / Plan
88-year-old female presenting with symptomatic UTI and active U/A. Hypotensive on admission. Initial labs showed leukocytosis.
Abd/pelvis CT (10/08):
1. No significant acute abnormality identified in the abdomen or pelvis, within the limits of unenhanced CT, as described above.
2. Trace left pleural effusion.
CXR (10/08):
Stable right upper lobe scarring/posttreatment change. No convincing focal infiltrates. No significant pleural effusions. No visualized pneumothorax.
Chronic conditions prior to admission
Breast cancer status post right mastectomy 2019 with ongoing chemotherapy
Hypertension
Hypercholesteremia
Asthma/Seasonal allergy
Chronic neuropathy
Osteoarthritis
Chronic lumbar back pain
History of iron deficiency anemia
Anxiety
# Sepsis secondary to symptomatic UTI
-urine culture, blood cultures pending
-Receiving IV fluids-Blood pressure maintained-continue to hold lisinopril for now
-Continue Ceftriaxone
-Leukocytosis resolved
-Remains afebrile
#Hypokalemia
-Repleted
#History of HLD
-cont simvastatin
# History of anxiety
-cont Lexapro
# DVT prophylaxis
-Lovenox
# History of breast cancer
- cont Tamoxifen
CODE STATUS: DNR
Anticipated Discharge: Within 24 hours
Subjective/Interval History
-
Date of Service: October 09, 2024
Patient mentions symptoms have improved. Denies urgency or dysuria at this time.
Objective Data
-
Labs:
Laboratory Results
10/09/24
05:27
WBC 10.5
Hgb 10.2 L
Hct 30.6 L
Plt Count 205 D
Sodium 137
Potassium 2.9 L
Chloride 104
Carbon Dioxide 24
BUN 18 H
Creatinine 0.7
Glucose 90
Calcium 7.4 L
Total Bilirubin 0.5
AST 21
ALT 17
Alkaline Phosphatase 43
Vital Signs:
Vital Signs
Temp Pulse Resp BP Pulse Ox
98.5 F 76 18 113/55 95
10/09/24 07:15 10/09/24 07:15 10/09/24 07:15 10/09/24 07:15 10/09/24 07:15
Review of Systems
-
History Source: Patient
All other systems: Reviewed and negative
Physical Exam
-
General: Well Developed and No Apparent Distress
HEENT: Normocephalic, Atraumatic and Moist Mucous Membranes
Respiratory: Clear to Auscultation
Cardiac: Regular Rhythm and S1/S2; Negative Murmur, Rub or Gallop
GI: Soft, Nontender, Nondistended and Normal Bowel Sounds; Negative Organomegaly
Rectal: Deferred by Provider
Musculoskeletal: No Clubbing, No Cyanosis and No Edema
Skin: Negative Rash
Neuro: Nonfocal/Grossly Intact
[2024-10-09] MEDS: NSS 1000 IV (13:15)
[2024-10-09] MEDS: KCL 160 MEQ IV (13:17)
[2024-10-09 15:00] LABS: Magnesium 1.7 mg/dl (1.6-2.3)
--- NOTE | 2024-10-09 16:36 | CM ---
Alert awake oriented patient who lives with her dgt Didi who lives in an apartment with 12 steps to enter .She is independent in all activities of daily living.Offered VN she declined.
She uses a cane
Never had VN/SNF She has done out pt PT in past
Pharmacy [facility]
PCP Dr Salazar
PLAN Home no needs
[2024-10-09] MEDS: LOVENOX 40 MG SC (17:27)
[2024-10-09] MEDS: ROCEPHIN 1000 MG IV (17:54)
[2024-10-09] MEDS: STERILE WATER FOR INJECTION 10 ML IV (17:54)
[2024-10-09] MEDS: DESYREL 50 MG PO (22:34)
[2024-10-10] MEDS: NSS 1000 IV (02:42)
[2024-10-10] MEDS: NSS IV ×2 (02:59→12:22)
[2024-10-10 03:16] VITALS: BP 137/65
[2024-10-10 05:22] VITALS: BMI 25.4
[2024-10-10 05:47] LABS: % Basophils 0.3 % (0-2); % Eosinophils 7.4 % (0-6); % Immature Granulocytes 0.5 % (0-0.5); % Lymphocytes 16.6 % (20.5-51.1); % Monocytes 7.5 % (1.7-9.3); % Neutrophils 67.7 % (42.2-75.2); Absolute Eosinophils 0.5 10^3/uL (0-0.7); Absolute Monocytes 0.5 10^3/uL (0.1-0.6); Absolute Neutrophils 4.2 10^3/uL (1.4-6.5); Hematocrit 29.3 % (37.0-47.0); Hemoglobin 9.6 g/dL (12.0-16.0); Mean Corp Hgb Conc. 32.8 g/dL (33.0-37.0); Mean Corpuscular Hgb 31.1 pg (27.0-31.0); Mean Corpuscular Volume 94.8 fL (81.0-99.0); Mean Platelet Volume 10.3 fL (7.4-10.4); Nucleated Red Blood Cells % 0 %; Platelet Count 202 10^3/uL (130-400); Red Blood Cell Count 3.09 10^6/uL (4.20-5.40); Red Cell Dist. Width 12.7 % (11.5-14.5); White Blood Cell Count 6.3 10^3/uL (4.8-10.8)
[2024-10-10 06:00] VITALS: BMI 25.4
[2024-10-10 06:17] LABS: ALT (SGPT) 16 U/L (0-35); AST (SGOT) 22 U/L (14-36); Albumin 2.8 g/dl (3.5-5.0); Alkaline Phosphatase 39 U/L (38-126); Blood Urea Nitrogen 10 mg/dl (7-17); Calcium 7.4 mg/dl (8.4-10.2); Carbon Dioxide 23 mmol/L (22-30); Chloride 110 mmol/L (98-107); Estimated Creatinine Clearance 63 ml/min; Glucose 93 mg/dl (70-99); Potassium 3.6 mmol/L (3.5-5.1); Sodium 140 mmol/L (135-145); Total Bilirubin 0.2 mg/dl (0.2-1.3); Total Protein 5.4 g/dl (6.3-8.2); eGFR > 60.00
--- NOTE | 2024-10-10 07:57 | W.PN.HOSP.TC ---
Today's Communication/Plan
-
D/c fluids and restart Lisinopril
U?C and B/C NGTD-May switch to oral AB today
Assessment / Plan
Assessment / Plan
88-year-old female presenting with symptomatic UTI and active U/A. Hypotensive on admission. Initial labs showed leukocytosis.
Abd/pelvis CT (10/08):
1. No significant acute abnormality identified in the abdomen or pelvis, within the limits of unenhanced CT, as described above.
2. Trace left pleural effusion.
CXR (10/08):
Stable right upper lobe scarring/posttreatment change. No convincing focal infiltrates. No significant pleural effusions. No visualized pneumothorax.
Chronic conditions prior to admission
Breast cancer status post right mastectomy 2019 with ongoing chemotherapy
Hypertension
Hypercholesteremia
Asthma/Seasonal allergy
Chronic neuropathy
Osteoarthritis
Chronic lumbar back pain
History of iron deficiency anemia
Anxiety
# Sepsis secondary to symptomatic UTI
-urine culture, blood cultures negative after 24 hours
-Receiving IV fluids-Blood pressure maintained-february d/c fluids and restart lisinopril
-Continue Ceftriaxone
-Leukocytosis resolved
-Remains afebrile
#Hypokalemia
- Resolved
-Replete as needed
#History of HLD
-cont simvastatin
# History of anxiety
-cont Lexapro
# DVT prophylaxis
-Lovenox
# History of breast cancer
- cont Tamoxifen
CODE STATUS: DNR
Anticipated Discharge: Within 24 hours
Subjective/Interval History
-
Date of Service: October 10, 2024
Patient does not offer any complaints at this time.
Objective Data
-
Labs:
Laboratory Results
10/10/24
05:02
WBC 6.3
Hgb 9.6 L
Hct 29.3 L
Plt Count 202
Sodium 140
Potassium 3.6
Chloride 110 H
Carbon Dioxide 23
BUN 10
Creatinine 0.6
Glucose 93
Calcium 7.4 L
Total Bilirubin 0.2
AST 22
ALT 16
Alkaline Phosphatase 39
Vital Signs:
Vital Signs
Temp Pulse Resp BP Pulse Ox
99.0 F 80 16 137/65 93
10/10/24 03:16 10/10/24 03:16 10/10/24 03:16 10/10/24 03:16 10/10/24 03:16
I&O
10/09/24 10/10/24 10/11/24
06:59 06:59 06:59
Intake Total 3330 / 3330
Balance 3330 / 3330
Review of Systems
-
History Source: Patient
All other systems: Reviewed and negative
Physical Exam
-
General: Well Developed and No Apparent Distress
HEENT: Normocephalic, Atraumatic and Moist Mucous Membranes
Respiratory: Clear to Auscultation
Cardiac: Regular Rhythm and S1/S2; Negative Murmur, Rub or Gallop
GI: Soft, Nontender, Nondistended and Normal Bowel Sounds; Negative Organomegaly
Rectal: Deferred by Provider
Musculoskeletal: No Clubbing, No Cyanosis and No Edema
Skin: Negative Rash
Neuro: Nonfocal/Grossly Intact
[2024-10-10 08:00] VITALS: BP 140/67
--- NOTE | 2024-10-10 08:20 | W.PN.UPDATE ---
Addendum entered and electronically signed by Musa Glasgow MD 10/10/24 12:22:
.
Original Note:
Update Note
Progress Note Update
I saw and evaluated the patient. I reviewed the resident�s note and agree with findings and plan as documented in the resident�s note.
No new complaints.
Gen: NAD, Awake and alert
Eyes: EOMI, PERRLA, no scleral icterus.
Neck: supple.
CV: RRR, +S1/S2, no m/r/g.
Resp: CTAB, no rales, wheezes, or rhonchi.
Abd: +BS, soft, NT, ND
Skin: No rashes.
Neuro: CN 2-12 intact, non-focal.
Psych: Normal mood and affect.
10/08/24 17:31 Blood/Venous Blood Culture - Preliminary
No Growth in 24 hours- Final report to follow
10/08/24 17:31 Blood/Venous Blood Culture - Preliminary
No Growth in 24 hours- Final report to follow
10/08/24 16:37 Urine Urine Culture - Final
Streptococcus agalactiae
10/08/24 17:31 Nasal Swab Influenza Types A & B (KATARZYNA) - Final
Negative for Influenza A & B, NAAT
Negative results must be combined with clinical observations
and patient history.
Nucleic Acid Amplification test (NAAT)performed on the
Printed Piece platform.
CT A/P (no contrast):
1. No significant acute abnormality identified in the abdomen or pelvis within limits of unenhanced CT
2. Trace pleural effusion
CXR: No acute cardiopulmonary process
Sepsis secondary to UTI:
-s/p IVF bolus on admission for hypotension
-s/p IVFs
-received Rocephin while hospitalized
-leukocytosis has resolved
-BCxs NGTD
-UCx with strep agalactiae
-Discharged on 5 further days of Keflex
Other problems:
HLD: cont statin
R breast CA s/p mastectomy/chemo 2019 with resultant chronic peripheral neuropathy: Cont tamoxifen
Osteoarthritis
Chronic lumbar back pain
h/o Fe def anemia
Anxiety: cont Lexapro
DNR/Lovenox
Medically cleared for discharge. Case management aware.
Total time spent on d/c = 31 min. This included today's physical exam, progress note, review of laboratory and diagnostic data, preparation of discharge documents and prescriptions, and discussions about the pt's hospital course and discharge plan
with the patient and other medical registrar involved in the patient's care.
[2024-10-10] MEDS: LIPITOR 10 MG PO (08:39)
[2024-10-10] MEDS: NOLVADEX 20 MG PO (08:40)
[2024-10-10] MEDS: LEXAPRO 10 MG PO (08:40)
[2024-10-10] MEDS: CLARITIN 10 MG PO (08:40)
--- NOTE | 2024-10-10 10:03 | CM ---
Met with pt at bedside. Pt in agreement with dc. No skilled dc needs identified.
IMM reviewed, signed and original placed on chart.
Offered to call daughter. Declined, she will call.
[2024-10-10 11:30] VITALS: BP 160/77
--- NOTE | 2024-10-10 14:29 | W.DCSUMMARY ---
Addendum entered and electronically signed by Musa Glasgow MD 10/11/24 08:59:
Read, reviewed, and agree. See same day progress note for additional details.
Original Note:
Discharge Summary
Discharge Data
Date of Admission: 10/08/24
Date of Discharge: 10/10/24
-
Pending Results: No
Hospital Course
88-year-old female who presented with urinary frequency, dysuria and urgency from 3-4 days prior to admission and new-onset confusion and fatigue on the morning of admission. She was hypotensive on admission. Initial labs showed leukocytosis.
Urinalysis was negative. Blood culture and UCx were sent and was then started on Rocephin. patient also received 3 liter bolus fluids for sepsis. Imaging was done with the following results:
Abd/pelvis CT (10/08):
1. No significant acute abnormality identified in the abdomen or pelvis, within the limits of unenhanced CT, as described above.
2. Trace left pleural effusion.
CXR (10/08):
Stable right upper lobe scarring/posttreatment change. No convincing focal infiltrates. No significant pleural effusions. No visualized pneumothorax.
Patient was admitted for further management of urosepsis and symptomatic UTI. During admission, she continued to receive Rocephin and fluids. Lisinopril was held due to blood pressures being on the lower side. Symptoms improved and patient
remained afebrile during stay. Leukocytosis was resolved. Hypokalemia was repleted when needed. Blood culture came back negative after 24 hours however urine culture came back positive as Streptococcus agalactiae. OT PT visited patient and
anticipated safe discharge to home with family support.
Today, patient is medically stable for discharge to home. Rocephin was discontinued. Patient is to continue antibiotic therapy with Keflex 500 every 6 hours for another 5 days.
Discharge Plan
-
Patient Disposition: Home (Routine Discharge)
Discharge Diagnosis/Procedures: Sepsis due to acute urinary tract infection, hyperlipidemia, essential hypertension
Condition: Good
Diet: Low Fat, Low Cholesterol and Low Sodium
Activity: No restrictions
Driving Restrictions: As prior to admission
Bathing Restrictions: None
Instructions: Urinary tract infections in adults
Referrals:
Sean Salazar MD [Family Provider] - in less than 1 week
Additional Discharge Medication Instructions: Nitrofurantoin stopped due to acute UTI being treated with Keflex. Please follow with your PCP in 7-10 days on when to restart Nitrofurantoin.
Prescriptions:
New
cephalexin 500 mg capsule
500 mg PO Q6H Qty: 20 0RF
Continued
simvastatin 20 MG tablet
20 mg PO DAILY
lisinopril-hydrochlorothiazide 20-25 mg Tablet
1 tab PO DAILY
tamoxifen 20 mg Tablet
20 mg PO DAILY
loratadine [Claritin] 10 mg Tablet
10 mg PO DAILY
escitalopram oxalate 10 mg Tablet
10 mg PO DAILY
trazodone 50 mg tablet
50 mg PO HS
Discontinued
nitrofurantoin monohyd/m-cryst 100 mg Capsule
100 mg PO BID
Discharge Orders:
Discharge Patient (As Directed); Ordered 10/10/24
Ordered By: Cici Aguirre
Discharge Date and Time
Discharge Date/Time: 10/10/24 12:45
Print Language: CAPE VERDEAN
== END 2024-10-10 12:45 | disposition home or self-care (01) | DRG 872 ==
LOC: 3 WEST ACU 20:36
PROVIDERS: Clinical Nurse Specialist Family Health; Emergency Medicine; ADMITTING PHYSICIAN Hospitalist; ATTENDING PHYSICIAN Internal Medicine; EMERGENCY PHYSICIAN Emergency Medicine; FAMILY PHYSICIAN Family Medicine
DX: A41.9 Sepsis, unspecified organism (principal); N39.0 Urinary tract infection, site not specified; Z11.52 Encounter for screening for COVID-19; I10 Essential (primary) hypertension; E78.00 Pure hypercholesterolemia, unspecified; M19.90 Unspecified osteoarthritis, unspecified site; F41.9 Anxiety disorder, unspecified; D50.9 Iron deficiency anemia, unspecified; M54.50 Low back pain, unspecified; G89.29 Other chronic pain; Z66 Do not resuscitate; E87.6 Hypokalemia
CPT/HCPCS: 71046; 74176; 80053; 81003; 81015; 83605; 83735; 85025; 87040; 87077; 87086; 87147; 87502; 87811; 93005; 96361; 96374; 96375; 97162; 97166; 99285

== ENCOUNTER → 2024-12-08 08:08 | Outpatient (REF) | payer OTHER, SELFPAY ==
[2024-12-08 10:34] LABS: Glycohemoglobin (HgbA1c) 5.8 % (4.0-5.6)
[2024-12-08 17:14] LABS: ALT (SGPT) 19 U/L (0-35); AST (SGOT) 28 U/L (14-36); Albumin 4.3 g/dl (3.5-5.0); Alkaline Phosphatase 63 U/L (38-126); Blood Urea Nitrogen 18 mg/dl (7-17); Calcium 9.1 mg/dl (8.4-10.2); Carbon Dioxide 29 mmol/L (22-30); Chloride 100 mmol/L (98-107); Glucose 95 mg/dl (70-99); HDL Cholesterol 60 mg/dl; LDL Cholesterol, Calculated 77 mg/dl; Potassium 4.4 mmol/L (3.5-5.1); Sodium 138 mmol/L (135-145); Total Bilirubin 0.7 mg/dl (0.2-1.3); Total Cholesterol 152 mg/dl (50-199); Triglyceride 76 mg/dl (10-149); Very Low Density Lipoprotein 15 mg/dl (0-30); eGFR > 60.00
[2024-12-08 17:28] LABS: Total CK 84 U/L (30-135)
[2024-12-08 17:48] LABS: CKMB 0.8 ng/ml (0.0-3.4)
== END ==
LOC: REG 08:08
PROVIDERS: ATTENDING PHYSICIAN Family Medicine; OTHER PHYSICIAN Internal Medicine Hematology & Oncology
DX: K21.9 Gastro-esophageal reflux disease without esophagitis (principal); I10 Essential (primary) hypertension; E78.9 Disorder of lipoprotein metabolism, unspecified; E78.2 Mixed hyperlipidemia
CPT/HCPCS: 36415; 80053; 80061; 82550; 82553; 83036

== ENCOUNTER 2025-04-12 13:40 | Inpatient (IN) | payer OTHER, SELFPAY ==
[2025-04-10] VITALS (8 sets, daily range): BP systolic 102–131; BP diastolic 50–73; BMI 23.1; BMI 24.0
--- NOTE | 2025-04-10 10:46 | ED.GENMED ---
History of Present Illness
General
Chief Complaint: Pneumonia Symptoms
Source: patient
Time Seen by Provider: 04/10/25 10:31
History of Present Illness
History of Present Illness:
89-year-old female presents to the emergency room for evaluation of feeling generalized weakness, cough, shortness of breath. Patient feels like she is wheezing. Patient began feeling unwell about 1 week ago. She took a COVID test at home which
was positive. Her primary care provider called in a prescription for Paxlovid. She felt minimal improvement. She was then prescribed a course of prednisone because she is beginning to develop wheezing and her cough is getting worse. She felt
better for about 24 hours but now her symptoms are worse than ever. She denies any nausea, vomiting or diarrhea. Her maximum temperature at home was 99 point something. Patient states she frequently has wheezing when she has a respiratory
infection but does not have wheezing otherwise.
Past History
Past History
ED Past Medical History: Asthma, Cancer (Breast Ca), HTN and Hypercholesterolemia
ED Past Surgical History: None
Social History
Tobacco: Non-smoker (Has been exposed to secondhand smoke however)
Alcohol: Occasional
Drug: None
Personal:
Living: with family
Employment: Retired
Family History
Family History: CAD; Negative Diabetes, Hypertension, Asthma or Cancer
Phy Exam
Physical Exam
Physical Exam:
General: Awake, Alert, Oriented X3. Mild increased work of breathing
Vitals: Tachypneic,
Head: Atraumatic
Eyes: Pupils equal, EOMI
Throat: Airway intact, no exudates
Neck: Trachea midline
Lungs: Expiratory wheezing diffusely
Heart: Regular rate, no murmurs
Abd: Soft, Nontender, No pulsatile mass
Neuro: Nonfocal
Skin: Warm, dry, no rash
Extremities: pulses equal b/l, no edema
Sepsis
Sepsis Screening
Sepsis Assessment: Sepsis Ruled Out
Sepsis Screen
Sepsis Screen: Sepsis Ruled Out
Date: 04/10/25
Time: 14:40
Course
Orders/Labs/Results
Orders:
Orders
04/10/25 10:43
Cardiac Monitoring- Treatment ONCE
0.9% Sodium Chloride 500 ml [Nss] 500 ml IV BOLUS
Albuterol Sulfate [Ventolin Nebules] 7.5 mg INH R NOW STA
Dexamethasone Sod Phosphate [Decadron] 10 mg IV NOW STA
Ipratropium Nebs [Atrovent Nebules] 1 mg INH R NOW STA
CR Chest - 2 Views Urgent
Comment:
Reason For Exam: cough, subjective fever, sob
04/10/25 10:53
Basic Metabolic Panel Urgent
Complete Blood Count/With Diff Urgent
04/10/25 11:23
Acetaminophen [Tylenol] 650 mg .ROUTE .STK-MED ONE
04/10/25 11:26
Acetaminophen [Tylenol] 1,000 mg PO NOW STA
04/10/25 11:33
Acetaminophen [Tylenol] 650 mg PO NOW STA
04/10/25 14:08
Doxycycline [Vibramycin] 100 mg PO NOW STA
04/10/25 14:14
Admit/Transfer Patient As Directed
Co-Sign Provider:
Level of Care: Observation services
Assign to:: Medical/Surgical
Physician / Group: sarah
Diagnosis: asthma/bronchitis
Code Status As Directed
Resuscitation Status: Do not resuscitate
Reached after discussion with pt or family/Healthcare POA: Yes
PRN Pain Medication Management As Directed
May give lesser potent ordered pain med per pt: Yes
preference::
Protocol:: Medication orders for pain may be administered in a
manner that supports deferring to patient preference
when the pt is:
- Requesting an ordered lesser potent pain medication.
Least to most potent pain medications are defined
as: acetaminophen < NSAID < tramadol < opioids
(morphine, oxycodone, hydromorphone).
- Requesting a lesser dose of the same medication IF
ORDERED.
- Requesting a less intrusive route of administration
if both routes are prescribed by the provider (PO <
IV).
04/10/25 14:15
DNR Bracelet Application ONCE
Abnormal Lab Results
04/10/25
10:53
WBC 15.8 H 10^3/uL
(4.8-10.8)
RBC 3.86 L 10^6/uL
(4.20-5.40)
Hct 35.0 L %
(37.0-47.0)
MCH 31.9 H pg
(27.0-31.0)
Abs Immat Gran (auto) 0.1 H 10^3/uL
(0-0.05)
Absolute Neuts (auto) 14.2 H 10^3/uL
(1.4-6.5)
Absolute Lymphs (auto) 0.8 L 10^3/uL
(1.2-3.4)
Absolute Monos (auto) 0.7 H 10^3/uL
(0.1-0.6)
Neutrophils % 90.2 H %
(42.2-75.2)
Lymphocytes % 5.1 L %
(20.5-51.1)
BUN 18 H mg/dl
(7-17)
Glucose 133 H mg/dl
(70-99)
04/10/25 10:53
04/10/25 10:53
Vital Signs
Initial and Last Documented VS:
Initial Vital Signs
Temp Pulse Resp BP Pulse Ox
99.5 F 99 26 102/55 89
04/10/25 10:13 04/10/25 10:13 04/10/25 10:13 04/10/25 10:13 04/10/25 10:13
Last Documented Vital Signs
Temp Pulse Resp BP Pulse Ox
99.2 F 105 28 122/61 90
04/10/25 13:41 04/10/25 13:30 04/10/25 13:30 04/10/25 13:00 04/10/25 13:30
MDM/Problems Addressed
Differential Diagnosis Includes:
COVID pneumonitis, bronchospasm secondary to COVID, secondary bacterial pneumonia
MDM/Problems Addressed:
Patient presents with cough, wheezing, shortness of breath recent COVID-positive test. Chest x-ray does not show any infiltrate or typical COVID changes. Patient's wheezing improved with an hour-long neb albuterol and Atrovent but she does
continue to have wheezing and does continue to require oxygen supplementation. Patient will require hospitalization for continued management
Chronic conditions affecting care: HTN
*Radiology
Radiology exam reviewed: preliminary read by ED provider (No acute infiltrate)
*Pulse Oximetry
Patient hypoxic: yes
Comment: 89
*Culinary Art Teacher Interpretation
Rate: normal
Interpretation: normal
Rhythm: sinus
*Critical Care Note
Total Time (30-74mins, 75-104mins- exclusive of procedures): Not Applicable
Patient Management
Social determinants of health affecting care: Living situation and Strong social support
ED Attending Note
-
Portions of this chart may have been created with voice recognition software.� Occasional wrong word or��sound alike� substitutions may have occurred due to the inherent limitations of voice recognition software.
Discharge Plan
Departure
Patient Disposition: Admit
Date of Disposition: 04/10/25
Time of Disposition: 14:02
Admit to: Med/Surg
Presentation/result/management discussed w/ accepting MD/DO: Hospitalist
Condition: Fair
Discharge Problem:
Hypoxia, Acute bronchitis
Instructions: Acute Bronchitis, Adult (DC)
Prescriptions:
No Action
simvastatin 20 MG tablet
20 mg PO DAILY
lisinopril-hydrochlorothiazide 20-25 mg Tablet
1 tab PO DAILY
tamoxifen 20 mg Tablet
20 mg PO DAILY
loratadine [Claritin] 10 mg Tablet
10 mg PO DAILY
escitalopram oxalate 10 mg Tablet
10 mg PO DAILY
trazodone 50 mg tablet
50 mg PO HS
cephalexin 500 mg capsule
500 mg PO Q6H Qty: 20 0RF
prednisone 10 mg tablet
See Taper
Taper: Prednisone DC Starting at 40 mg daily
40 mg Daily for 2 Days and 0 Hour
30 mg Daily for 2 Days and 0 Hour
20 mg Daily for 2 Days and 0 Hour
10 mg Daily for 2 Days and 0 Hour
Patient Comments:
started on 04/08/25
Paxlovid 300 mg (150 mg x 2)-100 mg tablets,dose pack
3 ea PO BID
Patient Comments:
final dose today
Referrals:
Sean Salazar MD [Family Provider, Family Practice]
Interventions
Interventions:
*Risk Screen - Suicide Last Done: 04/10/25 10:13
*General Assessment Last Done: 04/10/25 10:13
*Neglect/Abuse Screening Last Done: 04/10/25 10:35
*ED COVID-19 Vaccine History Last Done: 04/10/25 11:31
ED- Cardiac Assessment Last Done: 04/10/25 10:35
ED- Pulmonary Assessment Last Done: 04/10/25 10:35
Discharge Date and Time
Print Language: ICELANDIC
[2025-04-10 11:20] LABS: Blood Urea Nitrogen 18 mg/dl (7-17); Calcium 8.5 mg/dl (8.4-10.2); Carbon Dioxide 25 mmol/L (22-30); Chloride 102 mmol/L (98-107); Estimated Creatinine Clearance 42 ml/min; Glucose 133 mg/dl (70-99); Potassium 3.8 mmol/L (3.5-5.1); Sodium 135 mmol/L (135-145); eGFR > 60.00
[2025-04-10] MEDS: NSS 500 IV (11:30)
[2025-04-10] MEDS: DECADRON 10 MG IV (11:31)
[2025-04-10] MEDS: VENTOLIN NEBULES 7.5 MG INH (11:32)
[2025-04-10] MEDS: ATROVENT NEBULES 1 MG INH (11:32)
[2025-04-10] MEDS: TYLENOL 650 MG PO (11:33)
[2025-04-10 12:38] LABS: Hemoglobin 12.3 g/dL (12.0-16.0); Mean Corp Hgb Conc. 35.1 g/dL (33.0-37.0); Mean Corpuscular Hgb 31.9 pg (27.0-31.0); Mean Corpuscular Volume 90.7 fL (81.0-99.0); Mean Platelet Volume 9.6 fL (7.4-10.4); Platelet Count 344 10^3/uL (130-400); Red Blood Cell Count 3.86 10^6/uL (4.20-5.40); Red Cell Dist. Width 12.1 % (11.5-14.5); White Blood Cell Count 15.8 10^3/uL (4.8-10.8)
[2025-04-10 13:07] LABS: % Basophils 0.2 % (0-2); % Immature Granulocytes 0.3 % (0-0.5); % Lymphocytes 5.1 % (20.5-51.1); % Monocytes 4.2 % (1.7-9.3); % Neutrophils 90.2 % (42.2-75.2); Absolute Immature Granulocytes 0.1 10^3/uL (0-0.05); Absolute Lymphocytes 0.8 10^3/uL (1.2-3.4); Absolute Monocytes 0.7 10^3/uL (0.1-0.6); Absolute Neutrophils 14.2 10^3/uL (1.4-6.5); Nucleated Red Blood Cells % 0 %
--- NOTE | 2025-04-10 14:16 | HPS.HSE ---
Family Physician
-
Family Physician: Sean Salazar
Chief Complaint
-
cough
History of Present Illness
89-year-old female past medical history of asthma, breast cancer status post right mastectomy in 2019 with chemotherapy, hypertension, hypercholesteremia, chronic neuropathy, osteoarthritis, chronic lumbar back pain, iron deficiency anemia, anxiety,
presenting for generalized weakness, cough and shortness of breath and wheezing. She began feeling unwell a week ago and took a COVID test which was positive. She was treated with Paxlovid with minimal improvement. She was then prescribed a
course of prednisone of which she is 3 days and but she was beginning to develop wheezing and her cough is getting worse. She felt better for a day but now symptoms are getting worse. Denies nausea vomiting or diarrhea. Temperature was 99 at
maximum. She had night sweats but no fever. Had an episode of diarrhea today with no vomiting or abdominal pain.
Her asthma is normally very infrequent and she does not use inhalers normally.
No smoking history but exposed to secondhand smoke previously. Denies alcohol.
Medical History
Past Medical History
Past Medical History: Reports Other (asthma, breast cancer status post right mastectomy in 2019 with chemotherapy, hypertension, hypercholesteremia, chronic neuropathy, osteoarthritis, chronic lumbar back pain, iron deficiency anemia, anxiety,)
Past Surgical History: Reports None
Social History
Tobacco: Non-smoker
Alcohol: None
Drug: None
Family History
Family History: Not pertinent
Allergies / Home Medications
Allergies reflects when Allergies were last updated in [facility].
Home Medications with original date entered in [facility]
Allergy/Medication List:
Allergies
Allergy/AdvReac Type Severity Reaction Status Date / Time
adhesive Allergy Rash-patient Verified 04/10/25 10:13
states
sensitivity
adhesive tape Allergy Rash-patient Verified 04/10/25 10:13
states
sensitivity
Home Medications
simvastatin 20 mg tablet 20 mg PO DAILY 11/26/11
escitalopram oxalate 10 mg tablet 10 mg PO DAILY 10/08/24
lisinopril 20 mg-hydrochlorothiazide 25 mg tablet 1 tab PO DAILY 10/08/24
loratadine 10 mg tablet (Claritin) 10 mg PO DAILY 10/08/24
tamoxifen 20 mg tablet 20 mg PO DAILY 10/08/24
trazodone 50 mg PO HS sleep 10/09/24
cephalexin 500 mg capsule 500 mg PO Q6H #20 caps 10/10/24
Review of Systems
-
History Source: Patient
A 12 point ROS was completed and negative except as noted: Yes
Constitutional: Reports No Symptoms
EENT: Reports No Symptoms
Respiratory: Reports See HPI
Cardiac: Reports No Symptoms
Abdomen/GI: Reports No Symptoms
: Reports No Symptoms
Musculoskeletal: Reports No Symptoms
Skin: Reports No Symptoms
Neurological: Reports No Symptoms
Endocrine: Reports No Symptoms
Hematologic/Lymphatic: Reports No Symptoms
Psych: Reports No Symptoms
Physical Exam
Vital Signs
Vital Signs
Temp Pulse Resp BP Pulse Ox
99.2 F 105 28 122/61 90
04/10/25 13:41 04/10/25 13:30 04/10/25 13:30 04/10/25 13:00 04/10/25 13:30
Physical Exam
General: Well Developed, Well Nourished and No Apparent Distress
HEENT: NormoCephalic, Moist mucous membranes and Atraumatic
Respiratory: Wheezes
Cardiac: S1/S2 and Regular Rhythm; No Murmur or Rub
GI: Soft, Non Tender, Non Distended and Normal Bowel Sounds; No Organomegaly
Rectal: Deferred by Provider
Musculoskeletal: No Clubbing, No Cyanosis and No Edema
Skin: No Rash
Neuro: Nonfocal/grossly intact
Laboratory Results
-
04/10/25 10:53
04/10/25 10:53
Data Reviewed
-
Lab Data: Labs Reviewed by me
Old Records: Reviewed
Impression/Plan
-
IMPRESSION:
PLAN:
# Acute bronchitis/asthma exacerbation secondary to COVID
# Recent COVID infection
-Chest x-ray unremarkable
- DuoNebs every 6 hours
- Dexamethasone 4 mg every 12
- Given Doxy in ER but can discontinue
- Mucinex
Breast cancer status post right mastectomy 2019/chemotherapy
- Continue tamoxifen
Essential hypertension
- Continue lisinopril/hydrochlorothiazide
Hypercholesterolemia
- Continue statin
Chronic neuropathy
Osteoarthritis
Chronic lumbar back
Iron deficiency anemia
Anxiety
- Continue Lexapro
DNR/DNI
DVT prophylaxis�heparin
Regular diet
--- NOTE | 2025-04-10 14:44 | CM ---
Addendum entered by Tonya Aaron 04/10/25 15:07:
Patient admission status is Observation; GALINDO form explained; form signed; copy of form provided
Original Note:
Met with patient and her daughter in the ED at bedside
IMM benefit explained; form signed @ 1935
Pharmacy verified: [id number] [facility]
Patient has a home in [place]; however, she currently resides in an apartment on her daughter's property located @ [address] [place] [address]
12 steps to enter (a stair lift is available if needed); bathroom has stall shower w/ seat and grab bar
PLOF: patient reported she is independent with ADLs; ambulates with a cane PRN; does not drive; daughter is a Nurse and available to provide assistance if needed
Patient is hard of hearing; wears hearing aids
Didi Uriostegui, will transport home
Plan: anticipate discharge to home when medically stable; casey saw operator will monitor for discharge needs/services and support accordingly
[2025-04-10] MEDS: VIBRAMYCIN 100 MG PO (14:58)
[2025-04-10] MEDS: ProAIR HFA INHALER 2 PUFF INH ×2 (15:31→19:47)
--- NOTE | 2025-04-10 18:15 | PTCARENOTE ---
Patient admitted to room 432 from ER. Tolerating OOB to bathroom with supervision. Plan of care ongoing.
[2025-04-10] MEDS: XALATAN OPHTHALMIC SOLUTION 1 DROP BOTH EYES (20:41)
[2025-04-10] MEDS: HEPARIN 5000 UNITS SC (20:41)
[2025-04-10] MEDS: MUCINEX 600 MG PO (20:41)
[2025-04-10] MEDS: DECADRON 4 MG IV (20:41)
[2025-04-10] MEDS: DESYREL 50 MG PO (20:53)
[2025-04-11 06:39] LABS: ALT (SGPT) 18 U/L (0-35); AST (SGOT) 22 U/L (14-36); Albumin 3.2 g/dl (3.5-5.0); Alkaline Phosphatase 50 U/L (38-126); Blood Urea Nitrogen 16 mg/dl (7-17); Calcium 8.4 mg/dl (8.4-10.2); Carbon Dioxide 26 mmol/L (22-30); Chloride 105 mmol/L (98-107); Estimated Creatinine Clearance 62 ml/min; Glucose 147 mg/dl (70-99); Potassium 3.9 mmol/L (3.5-5.1); Sodium 136 mmol/L (135-145); Total Bilirubin 0.4 mg/dl (0.2-1.3); Total Protein 6.4 g/dl (6.3-8.2); eGFR > 60.00
[2025-04-11 06:45] LABS: Hematocrit 31.5 % (37.0-47.0); Hemoglobin 11.2 g/dL (12.0-16.0); Mean Corp Hgb Conc. 35.6 g/dL (33.0-37.0); Mean Corpuscular Hgb 31.8 pg (27.0-31.0); Mean Corpuscular Volume 89.5 fL (81.0-99.0); Mean Platelet Volume 9.7 fL (7.4-10.4); Platelet Count 322 10^3/uL (130-400); Red Blood Cell Count 3.52 10^6/uL (4.20-5.40); Red Cell Dist. Width 12.2 % (11.5-14.5); White Blood Cell Count 14.6 10^3/uL (4.8-10.8)
[2025-04-11 07:09] VITALS: BP 127/67
[2025-04-11] MEDS: ProAIR HFA INHALER 2 PUFF INH ×3 (07:59→15:29)
[2025-04-11 08:25] LABS: % Basophils 0.1 % (0-2); % Immature Granulocytes 0.8 % (0-0.5); % Lymphocytes 8.3 % (20.5-51.1); % Monocytes 2.4 % (1.7-9.3); % Neutrophils 88.4 % (42.2-75.2); Absolute Immature Granulocytes 0.1 10^3/uL (0-0.05); Absolute Lymphocytes 1.2 10^3/uL (1.2-3.4); Absolute Monocytes 0.4 10^3/uL (0.1-0.6); Absolute Neutrophils 12.9 10^3/uL (1.4-6.5); Nucleated Red Blood Cells % 0 %
[2025-04-11] MEDS: NOLVADEX 20 MG PO (08:39)
[2025-04-11] MEDS: LEXAPRO 10 MG PO (08:40)
[2025-04-11] MEDS: MUCINEX 600 MG PO ×2 (08:40→19:49)
[2025-04-11] MEDS: ZINC 50 MG PO (08:40)
[2025-04-11] MEDS: DECADRON 4 MG IV ×2 (08:43→19:49)
[2025-04-11] MEDS: LIPITOR 10 MG PO (08:43)
[2025-04-11] MEDS: VITAMIN C 500 MG PO (08:43)
[2025-04-11] MEDS: ORETIC 25 MG PO (08:43)
[2025-04-11] MEDS: HEPARIN 5000 UNITS SC ×2 (08:43→19:49)
[2025-04-11] MEDS: ZESTRIL 20 MG PO (08:45)
--- NOTE | 2025-04-11 12:06 | W.PN.HOSP.TC ---
Today's Communication/Plan
-
see plan
Assessment / Plan
Assessment / Plan
Gen: NAD, AAOx3.
Eyes: EOMI, PERRLA, no scleral icterus.
Neck: supple.
CV: RRR, +S1/S2, no m/r/g.
Resp: Bilateral rhonchi and wheezes
Abd: +BS, soft, NT, ND
Skin: No rashes.
Neuro: CN 2-12 intact, non-focal.
Psych: Normal mood and affect.
CXR: No acute cardiopulmonary process.
Acute bronchitis/asthma exacerbation secondary to COVID:
-recent COVID infection
-currently on 4L NC O2
-CXR unremarkable as above
-currently on IV Decadron/Mucinex
-duonebs PRN
Other problems:
Breast CA s/p R mastectomy 2019/chemotherapy: cont tamoxifen
Essential HTN: cont lisinopril/hydrochlorothiazide
Hypercholesterolemia: cont statin
Chronic neuropathy
Osteoarthritis
Chronic lumbar back
Iron deficiency anemia
Anxiety: cont Lexapro
Family updated at bedside.
DNR/DNI/heparin
Anticipated Discharge: 24 - 48 hours
Subjective/Interval History
-
Date of Service: April 11, 2025
Patient reports shortness of breath is improved.
Objective Data
-
Labs:
Laboratory Results
04/11/25
06:01
WBC 14.6 H
Hgb 11.2 L
Hct 31.5 L
Plt Count 322
Sodium 136
Potassium 3.9
Chloride 105
Carbon Dioxide 26
BUN 16
Creatinine 0.5 L
Glucose 147 H
Calcium 8.4
Total Bilirubin 0.4
AST 22
ALT 18
Alkaline Phosphatase 50
Vital Signs:
Vital Signs
Temp Pulse Resp BP Pulse Ox
97.8 F 88 15 127/67 94
04/11/25 07:09 04/11/25 11:16 04/11/25 11:16 04/11/25 07:09 04/11/25 08:07
I&O
04/10/25 04/11/25 04/12/25
06:59 06:59 06:59
Intake Total 720 / 720
Balance 720 / 720
[2025-04-11 15:56] VITALS: BP 146/75
[2025-04-11] MEDS: ProAIR HFA INHALER INH (19:51)
[2025-04-11] MEDS: XALATAN OPHTHALMIC SOLUTION 1 DROP BOTH EYES (21:11)
[2025-04-11] MEDS: DESYREL 50 MG PO (21:13)
[2025-04-11 23:37] VITALS: BP 139/76
[2025-04-12 07:00] VITALS: BP 136/75
[2025-04-12] MEDS: ProAIR HFA INHALER 2 PUFF INH ×4 (08:29→20:21)
[2025-04-12] MEDS: NOLVADEX 20 MG PO (08:50)
[2025-04-12] MEDS: ZINC 50 MG PO (08:50)
[2025-04-12] MEDS: MUCINEX 600 MG PO ×2 (08:50→19:00)
[2025-04-12] MEDS: VITAMIN C 500 MG PO (08:50)
[2025-04-12] MEDS: LIPITOR 10 MG PO (08:51)
[2025-04-12] MEDS: ZESTRIL 20 MG PO (08:51)
[2025-04-12] MEDS: ORETIC 25 MG PO (08:51)
[2025-04-12] MEDS: LEXAPRO 10 MG PO (08:51)
[2025-04-12] MEDS: HEPARIN 5000 UNITS SC ×2 (08:51→19:00)
[2025-04-12] MEDS: DECADRON 4 MG IV ×2 (08:54→19:00)
--- NOTE | 2025-04-12 12:39 | CM ---
Chart reviewed and patient is currently requiring 2 liters of oxygen, plan is to home at discharge.
Plan; To follow with patient progress, and assist with discharge planning follow for any oxygen needs at discharge.
--- NOTE | 2025-04-12 13:40 | W.PN.HOSP.TC ---
Today's Communication/Plan
-
Assessment / Plan
Assessment / Plan
NAD
Scleral Anicteric
MMM
No JVD
Rhonchorous and wheezing throughout all lung valera
RRR, S1/S2
Soft, NT, ND, BS+
Warm, Dry
AAOx3
Calm
Acute bronchitis/asthma exacerbation secondary to COVID:
-recent COVID infection
-currently on 4L NC O2
-wean o2 as toelrated
-CXR unremarkable as above
-currently on IV Decadron/Mucinex
-duonebs PRN
-incentive gillian
-acapella
Other problems:
Breast CA s/p R mastectomy 2019/chemotherapy: cont tamoxifen
Essential HTN: cont lisinopril/hydrochlorothiazide
Hypercholesterolemia: cont statin
Chronic neuropathy
Osteoarthritis
Chronic lumbar back
Iron deficiency anemia
Anxiety: cont Lexapro
Family updated at bedside.
DNR/DNI/heparin
Anticipated Discharge: 24 - 48 hours
Subjective/Interval History
-
Date of Service: April 12, 2025
Seen and examined. No new complaints. No acute overnight events.
Objective Data
-
Vital Signs:
Vital Signs
Temp Pulse Resp BP Pulse Ox
98.1 F 86 16 136/75 96
04/12/25 07:00 04/12/25 11:55 04/12/25 11:55 04/12/25 08:51 04/12/25 11:55
I&O
04/11/25 04/12/25 04/13/25
06:59 06:59 06:59
Intake Total 720 / 720 480 / 480
Balance 720 / 720 480 / 480
[2025-04-12 15:17] VITALS: BP 145/71
[2025-04-12] MEDS: DESYREL 50 MG PO (21:04)
[2025-04-12] MEDS: XALATAN OPHTHALMIC SOLUTION 1 DROP BOTH EYES (21:04)
[2025-04-12 23:55] VITALS: BP 140/71
[2025-04-13 07:00] VITALS: BP 149/73
[2025-04-13] MEDS: ORETIC 25 MG PO (08:02)
[2025-04-13] MEDS: LEXAPRO 10 MG PO (08:07)
[2025-04-13] MEDS: LIPITOR 10 MG PO (08:07)
[2025-04-13] MEDS: ZESTRIL 20 MG PO (08:07)
[2025-04-13] MEDS: ZINC 50 MG PO (08:08)
[2025-04-13] MEDS: DECADRON 4 MG IV (08:08)
[2025-04-13] MEDS: ProAIR HFA INHALER 2 PUFF INH (08:08)
[2025-04-13] MEDS: HEPARIN 5000 UNITS SC ×2 (08:08→19:19)
[2025-04-13] MEDS: NOLVADEX 20 MG PO (08:08)
[2025-04-13] MEDS: MUCINEX 600 MG PO ×2 (08:08→19:19)
[2025-04-13] MEDS: VITAMIN C 500 MG PO (08:08)
--- NOTE | 2025-04-13 08:29 | CON.PUL ---
Consultation
Consultation Request
Date/Time Consultation Requested: 04/12/2025
Date/Time Consultation Performed: 04/13/2025
Requesting Provider: Dyllan Young
Performing Provider: Cesar Stanley
Reason for Consultation: Dyspnea
Medical History
-
Chief Complaint: Shortness of breath
History of Present Illness:
Patient is a very pleasant 89-year-old female with no known history of lung disease, presents with increasing cough and shortness of breath with wheezing. Patient reports that about 10 days ago she was diagnosed with COVID-19 on a home test which
was treated with Paxlovid initially with minimal improvement in her symptoms. Subsequently she also had a course of prednisone. In view of worsening wheezing and shortness of breath she presented to the emergency room. Chest x-ray was
unremarkable and patient was afebrile with minimally elevated WBC count thought to be related to steroids. Patient was admitted to the hospital and was treated with bronchodilators and steroids. In view of persistent respiratory symptoms,
pulmonary consultation was requested for further input.
Patient denies any known history of asthma and does not require any ongoing inhaler therapy. She reports that in the past very rarely she has used an inhaler in the setting of catching a cold with shortness of breath. Currently she is denying any
hemoptysis, pleuritic discomfort or purulent expectoration. There is occasionally low-volume clear expectoration reported. She overall feels better than her previous presentation and her oxygen requirement has gone down to 2 L now.
No smoking history but exposed to secondhand smoke previously. Denies alcohol.
Past Medical History
Past Medical History: Reports Other (asthma, breast cancer status post right mastectomy in 2019 with chemotherapy, hypertension, hypercholesteremia, chronic neuropathy, osteoarthritis, chronic lumbar back pain, iron deficiency anemia, anxiety,)
Past Surgical History: Reports None
Social History
Tobacco: Non-smoker
Alcohol: None
Drug: None
Family History
Family History: Not pertinent
Allergies / Home Medications
Allergies / Home Medications
Allergies
Allergy/AdvReac Type Severity Reaction Status Date / Time
adhesive Allergy Rash-patient Verified 04/10/25 10:13
states
sensitivity
adhesive tape Allergy Rash-patient Verified 04/10/25 10:13
states
sensitivity
Home Medications
�Medication �Instructions �Recorded �Confirmed �Last Taken �Type
simvastatin 20 mg tablet 20 mg PO DAILY High Cholesterol 11/26/11 04/10/25 04/10/25 History
escitalopram oxalate 10 mg tablet 10 mg PO DAILY Mental 10/08/24 04/10/25 04/10/25 History
Health/Anxiety
lisinopril 20 1 tab PO DAILY Blood Pressure 10/08/24 04/10/25 04/10/25 History
mg-hydrochlorothiazide 25 mg tablet
loratadine 10 mg tablet (Claritin) 10 mg PO DAILYPRN PRN allergies 10/08/24 04/10/25 04/10/25 History
tamoxifen 20 mg tablet 20 mg PO DAILY Cancer 10/08/24 04/10/25 04/10/25 History
albuterol sulfate 90 mcg/actuation 2 inh inhalation Q4H PRN cough 04/10/25 04/10/25 Unknown History
breath activated powder inhaler
(ProAir RespiClick)
ascorbic acid (vitamin C) 500 mg 500 mg PO DAILY Supplement 04/10/25 04/10/25 04/10/25 History
tablet
benzonatate 200 mg capsule 200 mg PO TIDPRN PRN cough 04/10/25 04/10/25 04/10/25 History
latanoprost 0.005 % eye drops 1 drp BOTH EYES HS Eye Condition 04/10/25 04/10/25 04/09/25 History
nirmatrelvir 300 mg (150 mg 3 ea PO BID COVID 04/10/25 04/10/25 04/10/25 History
x2)-ritonavir 100 mg tablet,dose
pack (Paxlovid)
prednisone 10 mg tablet See Taper INFLAMMATION 04/10/25 04/10/25 14:31 History
30 mg
trazodone 50 mg tablet 50 mg PO HSPRN PRN sleep 04/10/25 04/10/25 Unknown History
zinc acetate 50 mg (zinc) capsule 50 mg PO DAILY Supplement 04/10/25 04/10/25 04/10/25 History
Review of Systems
-
Hematologic/Lymphatic: Other (All 14 systems reviewed and negative except as stated above in the history of present illness.)
Vitals / Labs / Diagnostic Testing
Vital Signs
Temp Pulse Resp BP Pulse Ox
97.8 F 76 16 149/73 96
04/13/25 07:00 04/13/25 08:15 04/13/25 08:15 04/13/25 08:07 04/13/25 08:15
Lab Data
04/11/25 06:01
04/11/25 06:01
Diagnostic Testing:
Physical Exam
-
HEENT: Normocephalic
Cardiovascular: S1/S2
Respiratory: Wheeze (Bilateral end expiratory wheezing) and Rhonchi
GI: Soft and Non Distended
Neurology: Awake and Alert
Skin: Warm
General: Comfortable
Assessment
-
#1. Acute Asthmatic bronchitis, likely due to recent COVID-19
- Eosinophil count 0-800. Patient is quite bronchospastic on exam with bilateral end expiratory wheezing.
- CXR without infiltrates, repeat imaging today still unchanged
- Start Duoneb qid, Budesonide bid and Prednisone 40 mg daily
- Wean O2 as tolerated, down to 2 ltrs now
- Continues to be afebrile, WBC elevated likely due to steroids
- s/p Paxlovid as out patient. Since diagnosis was almost 10 days ago, hold off Remdesivir
- No prior history of asthma, COPD or emphysema. Patient has some secondhand smoke exposure. She will need outpatient pulmonary function testing for further evaluation.
#2. Acute hypoxic respiratory failure
- Secondary to acute asthmatic bronchitis due to COVID-19, with known history of baseline right upper lobe postradiation scarring
- Continue to wean oxygen, currently down to 2 L supplemental oxygen, clinically improving. No calf tenderness or reported pleuritic discomfort.
#3. Chronic right upper lobe scarring, post radiation
- Patient has history of right mastectomy for breast cancer s/p chemotherapy and radiation with right upper lobe postradiation changes. Reviewed her previous imaging as well as current x-ray.
- Continue supportive care for now
- Will pursue pulmonary function testing as outpatient to evaluate for any restriction
Other medical diagnoses:
- H/o breast cancer 2019, s/p Right Mastectomy, Chemotherapy and radiation
- Post radiation changes, RUL scarring
- HTN, HLD
Continue DVT prophylaxis, currently on subcu heparin
Total time spent on this consultation/encounter _68___ minutes which includes review of history, physical exam, medications, laboratory data, personal review of imaging, extensive review of outpatient records, discussion with care team and
respiratory therapy.
Data:
CXR 03/2025: No acute cardiopulmonary process.
ECHO 01/2023: Estimated ejection fraction is 70-75%. No regional wall motion abnormalities are seen.
Normal right ventricular size and function.
No significant valvular disease.
LHC 02/2012: 1. Nonobstructive coronary atherosclerosis.
2. Normal left ventricular function.
Chest CT 03/2021: No evidence of an acute fracture. No discrete new bony abnormality.
Old posterior left rib fractures. Degenerative disk and joint disease in the spine.
If symptoms continue consider MRI of the thoracic spine to evaluate for cord compression or nerve root impingement.
Increased opacity in the right apex, likely related to post radiation changes. Patient is status post breast cancer, mastectomy and radiation therapy.
No focal airspace process or pleural effusion. No adenopathy.
[2025-04-13] MEDS: DELTASONE 40 MG PO (10:00)
--- NOTE | 2025-04-13 10:17 | CM ---
sanitation manager reviewed patient's chart and patient remains on 2 liters of oxygen, plan is to home when stable, will follow for discharge planning needs.
Plan; Home when stable.
[2025-04-13] MEDS: DUONEB INH (11:17)
[2025-04-13] MEDS: PULMICORT 0.5 MG INH ×2 (11:17→19:35)
[2025-04-13] MEDS: DUONEB 3 ML INH ×3 (11:17→19:35)
--- NOTE | 2025-04-13 12:20 | W.PN.HOSP.TC ---
Today's Communication/Plan
-
Assessment / Plan
Assessment / Plan
NAD
Scleral Anicteric
MMM
No JVD
Rhonchorous and wheezing throughout all lung valera
RRR, S1/S2
Soft, NT, ND, BS+
Warm, Dry
AAOx3
Calm
Acute bronchitis/asthma exacerbation secondary to COVID:
-recent COVID infection
-currently on 4L NC O2
-wean o2 as toelrated
-CXR unremarkable as above
-currently on IV Decadron/Mucinex
-duonebs PRN
-incentive gillian
-acapella
-Pulm ocnsulted
Other problems:
Breast CA s/p R mastectomy 2019/chemotherapy: cont tamoxifen
Essential HTN: cont lisinopril/hydrochlorothiazide
Hypercholesterolemia: cont statin
Chronic neuropathy
Osteoarthritis
Chronic lumbar back
Iron deficiency anemia
Anxiety: cont Lexapro
Family updated at bedside.
DNR/DNI/heparin
Anticipated Discharge: 24 - 48 hours
Subjective/Interval History
-
Date of Service: April 13, 2025
seen and examined. no new complaints. no acute ovenright events
Objective Data
-
Vital Signs:
Vital Signs
Temp Pulse Resp BP Pulse Ox
97.8 F 87 16 149/73 94
04/13/25 07:00 04/13/25 11:31 04/13/25 11:31 04/13/25 08:07 04/13/25 11:31
I&O
04/12/25 04/13/25 04/14/25
06:59 06:59 06:59
Intake Total 480 / 480 1140 / 1140
Balance 480 / 480 1140 / 1140
[2025-04-13 15:00] VITALS: BP 141/75
[2025-04-13] MEDS: DESYREL 50 MG PO (21:14)
[2025-04-13] MEDS: XALATAN OPHTHALMIC SOLUTION 1 DROP BOTH EYES (21:14)
[2025-04-13 23:05] VITALS: BP 152/80
--- NOTE | 2025-04-14 04:19 | DOWNTIME ---
Addendum entered by Josette Harris RN 04/14/25 14:15:
Downtime was 04/14/2025 from 0100 to 04/14/2025 at 0415
Original Note:
There was a [employer] Client Quality Assurance Supervisor Body Downtime on 04/13/2025 from 0100 to 04/14/2025 at 0415. Downtime documentation of patient's care, including medication administrations, has been reconciled in the electronic record per guidelines. Refer to the
patient's paper chart under the miscellaneous tab to see printed paper medication records and downtime forms.
[2025-04-14 07:23] VITALS: BP 144/79
[2025-04-14] MEDS: NOLVADEX 20 MG PO (07:43)
[2025-04-14] MEDS: LEXAPRO 10 MG PO (07:44)
[2025-04-14] MEDS: DELTASONE 40 MG PO (07:44)
[2025-04-14] MEDS: ZINC 50 MG PO (07:44)
[2025-04-14] MEDS: HEPARIN 5000 UNITS SC ×2 (07:44→20:15)
[2025-04-14] MEDS: MUCINEX 600 MG PO ×2 (07:44→20:15)
[2025-04-14] MEDS: LIPITOR 10 MG PO (07:44)
[2025-04-14] MEDS: VITAMIN C 500 MG PO (07:44)
[2025-04-14] MEDS: ZESTRIL 20 MG PO (07:46)
[2025-04-14] MEDS: ORETIC 25 MG PO (07:47)
[2025-04-14] MEDS: DUONEB 3 ML INH ×4 (08:00→19:26)
[2025-04-14] MEDS: PULMICORT 0.5 MG INH ×2 (08:00→19:26)
--- NOTE | 2025-04-14 11:25 | CM ---
Addendum entered by Zayda Clark 04/14/25 12:49:
Home oxygen evaluation completed and patient does not require home oxygen at discharge, will follow.
Original Note:
Chart reviewed and physical therapy along with occupational therapy have been ordered for patient. Patient is currently on 2 liters of oxygen.
Plan; Will await PT/OT recommendations.
[2025-04-14] MEDS: AFRIN NASAL SPRAY 1 SPRAYS NASAL ×2 (11:29→20:22)
--- NOTE | 2025-04-14 12:01 | W.PN.PUL3 ---
Today's Communication / Plan
-
- Add Afrin intra-nasally bid for 3 days
- Wean O2 as tolerated. Increase activity as tolerated
Assessment
-
Patient is a very pleasant 89-year-old female with no known history of lung disease, presents with increasing cough and shortness of breath with wheezing. Patient reports that about 10 days ago she was diagnosed with COVID-19 on a home test which
was treated with Paxlovid initially with minimal improvement in her symptoms. Subsequently she also had a course of prednisone. In view of worsening wheezing and shortness of breath she presented to the emergency room. Chest x-ray was
unremarkable and patient was afebrile with minimally elevated WBC count thought to be related to steroids. Patient was admitted to the hospital and was treated with bronchodilators and steroids. In view of persistent respiratory symptoms,
pulmonary consultation was requested for further input.
Patient denies any known history of asthma and does not require any ongoing inhaler therapy. She reports that in the past very rarely she has used an inhaler in the setting of catching a cold with shortness of breath. Currently she is denying any
hemoptysis, pleuritic discomfort or purulent expectoration. There is occasionally low-volume clear expectoration reported. She overall feels better than her previous presentation and her oxygen requirement has gone down to 2 L now.
No smoking history but exposed to secondhand smoke previously. Denies alcohol.
#1. Acute Asthmatic bronchitis, likely due to recent COVID-19
- Eosinophil count 0-800. Patient was quite bronchospastic on exam with bilateral end expiratory wheezing, improving
- CXR without infiltrates, repeat imaging unchanged
- Continue Duoneb qid, Budesonide bid and Prednisone 40 mg daily
- Wean O2 as tolerated, down to 2 ltrs now
- Continues to be afebrile, WBC elevated likely due to steroids, slight improvement
- s/p Paxlovid as out patient. Since diagnosis was almost 10 days ago, hold off Remdesivir
- No prior history of asthma, COPD or emphysema. Patient has some secondhand smoke exposure. She will need outpatient pulmonary function testing for further evaluation.
#2. Acute hypoxic respiratory failure
- Secondary to acute asthmatic bronchitis due to COVID-19, with known history of baseline right upper lobe postradiation scarring
- Continue to wean oxygen, currently down to 2 L supplemental oxygen, clinically improving. No calf tenderness or reported pleuritic discomfort.
#3. Chronic right upper lobe scarring, post radiation
- Patient has history of right mastectomy for breast cancer s/p chemotherapy and radiation with right upper lobe postradiation changes. Reviewed her previous imaging as well as current x-ray.
- Continue supportive care for now
- Will pursue pulmonary function testing as outpatient to evaluate for any restriction
#4. Nasal congestion.
- Afrin bid for 3 days
- Ear pressure sensation likely due to nasal congestion, monitor for now
Other medical diagnoses:
- H/o breast cancer 2019, s/p Right Mastectomy, Chemotherapy and radiation
- Post radiation changes, RUL scarring
- HTN, HLD
Continue DVT prophylaxis, currently on subcu heparin
Updated patient's daughter
Total time spent on this consultation/encounter _48___ minutes which includes review of history, physical exam, medications, laboratory data, personal review of imaging, extensive review of outpatient records, discussion with care team and
respiratory therapy.
Data:
CXR 03/2025: No acute cardiopulmonary process.
ECHO 01/2023: Estimated ejection fraction is 70-75%. No regional wall motion abnormalities are seen.
Normal right ventricular size and function.
No significant valvular disease.
C 02/2012: 1. Nonobstructive coronary atherosclerosis.
2. Normal left ventricular function.
Chest CT 03/2021: No evidence of an acute fracture. No discrete new bony abnormality.
Old posterior left rib fractures. Degenerative disk and joint disease in the spine.
If symptoms continue consider MRI of the thoracic spine to evaluate for cord compression or nerve root impingement.
Increased opacity in the right apex, likely related to post radiation changes. Patient is status post breast cancer, mastectomy and radiation therapy.
No focal airspace process or pleural effusion. No adenopathy.
Subjective Data
-
Date of Service:
Date of Service: April 14, 2025
Objective Data
Data Reviewed
Vital Signs / I&O / Oxygen:
Vital Signs
Temp Pulse Resp BP Pulse Ox
98.3 F 83 17 148/89 96
04/14/25 07:23 04/14/25 08:03 04/14/25 08:03 04/14/25 07:47 04/14/25 08:03
Intake and Output
04/13/25 04/14/25 04/15/25
06:59 06:59 06:59
Intake Total 1140 / 1140 480 / 480
Balance 1140 / 1140 480 / 480
SaO2 96
Nasal Cannula flow liters per 2
minute
Labs/Micro/Reports
Lab Data
04/11/25 06:01
04/11/25 06:01
[2025-04-14 14:10] VITALS: BP 130/68; PULSE 89; O2SAT 92
[2025-04-14 14:11] VITALS: O2SAT 92
--- NOTE | 2025-04-14 14:19 | PTOTSP ---
The patient is independent with ambulation within the room without a device, demonstrating steady gait. Patient anticipates returning home tomorrow and denies concerns regarding mobility. No PT needs identified at this time, will sign off.
--- NOTE | 2025-04-14 15:16 | W.PN.HOSP.TC ---
Today's Communication/Plan
-
Assessment / Plan
Assessment / Plan
NAD
Scleral Anicteric
MMM
No JVD
Rhonchorous and wheezing throughout all lung valera
RRR, S1/S2
Soft, NT, ND, BS+
Warm, Dry
AAOx3
Calm
Acute bronchitis/asthma exacerbation secondary to COVID:
-recent COVID infection
-currently on 2L NC O2
-wean o2 as toelrated
-CXR unremarkable as above
-currently on IV Decadron/Mucinex
-duonebs PRN
-incentive gillian
-acapella
-Pulm started MDIs Afrin and steroids for treatment of asthmatic bronchitis
- Outpatient PFTs
Other problems:
Breast CA s/p R mastectomy 2019/chemotherapy: cont tamoxifen
Essential HTN: cont lisinopril/hydrochlorothiazide
Hypercholesterolemia: cont statin
Chronic neuropathy
Osteoarthritis
Chronic lumbar back
Iron deficiency anemia
Anxiety: cont Lexapro
Family updated at bedside.
DNR/DNI/heparin
Anticipated Discharge: Within 24 hours
Subjective/Interval History
-
Date of Service: April 14, 2025
Seen and examined. No new complaints. No acute overnight events.
Objective Data
-
Vital Signs:
Vital Signs
Temp Pulse Resp BP Pulse Ox
98.3 F 83 17 148/89 96
04/14/25 07:23 04/14/25 08:03 04/14/25 08:03 04/14/25 07:47 04/14/25 08:03
I&O
04/13/25 04/14/25 04/15/25
06:59 06:59 06:59
Intake Total 1140 / 1140 480 / 480
Balance 1140 / 1140 480 / 480
[2025-04-14 15:29] VITALS: BP 122/68
[2025-04-14] MEDS: CLARITIN 10 MG PO (16:53)
[2025-04-14] MEDS: XALATAN OPHTHALMIC SOLUTION 1 DROP BOTH EYES (20:16)
[2025-04-14] MEDS: DESYREL 50 MG PO (21:24)
[2025-04-14 23:21] VITALS: BP 138/68
--- NOTE | 2025-04-15 04:43 | PTCARENOTE ---
Assumed care at 1915. Patient AAO x 3. VSS. Patient stable on room air, not requiring supplemental oxygen. Dry, nonproductive cough present on assessment. Patient advised to use IS and acapella. COVID precautions maintained. Independent when OOB,
requiring no assistive device. Plan for discharge 04/15. Bed in lowest position, with all patient needs met. Call molina and personal belongings within reach.
[2025-04-15] MEDS: MUCINEX 600 MG PO (06:58)
[2025-04-15] MEDS: VITAMIN C 500 MG PO (06:58)
[2025-04-15] MEDS: CLARITIN 10 MG PO (06:59)
[2025-04-15] MEDS: ZINC 50 MG PO (06:59)
[2025-04-15] MEDS: LEXAPRO 10 MG PO (06:59)
[2025-04-15] MEDS: HEPARIN 5000 UNITS SC (06:59)
[2025-04-15] MEDS: DELTASONE 40 MG PO (06:59)
[2025-04-15] MEDS: NOLVADEX 20 MG PO (06:59)
[2025-04-15] MEDS: AFRIN NASAL SPRAY 30 SPRAYS NASAL (07:01)
[2025-04-15] MEDS: ORETIC 25 MG PO (07:02)
[2025-04-15] MEDS: LIPITOR 10 MG PO (07:02)
[2025-04-15] MEDS: ZESTRIL 20 MG PO (07:02)
[2025-04-15] MEDS: DUONEB 3 ML INH (07:51)
[2025-04-15] MEDS: PULMICORT 0.5 MG INH (07:52)
--- NOTE | 2025-04-15 11:08 | W.DCSUMMARY ---
Discharge Summary
Discharge Data
Date of Admission: 04/12/25
Date of Discharge: 04/15/25
-
Pending Results: No
Hospital Course
89-year-old female past medical history of asthma, breast cancer status post right mastectomy in 2019 with chemotherapy, hypertension, hypercholesteremia, chronic neuropathy, osteoarthritis, chronic lumbar back pain, iron deficiency anemia, anxiety,
presenting for generalized weakness
Presented with wheezing and cough shortness of breath weakness. Concern for acute bronchitis/asthma exacerbation secondary to COVID. Was started on steroids supplemental oxygen and breathing therapies. Evaluated by pulmonary and adjusted
breathing treatments transition to prednisone and recommended outpatient pulmonary function testing. Able to wean oxygen to room air.
seen and examined on the day of discharge. no new complaints. no acute overnight eventgs
NAD
Scleral Anicteric
MMM
No JVD
Rhonchorous and wheezing throughout all lung valera
RRR, S1/S2
Soft, NT, ND, BS+
Warm, Dry
AAOx3
Calm
Acute bronchitis/asthma exacerbation secondary to COVID:
-recent COVID infection
-currently on 2L NC O2
-wean o2 as toelrated
-CXR unremarkable as above
-currently on IV Decadron/Mucinex
-duonebs PRN
-incentive gillian
-acapella
-Pulm started MDIs Afrin and steroids for treatment of asthmatic bronchitis
- Outpatient PFTs
.
More than 30 minutes spent in discharge including
Final examination of the patient
Summarizing hospital stay
Instructions for continuing care to all relevant caregivers
Preparation of discharge records, prescriptions, and referral forms
Total time spent (in minutes): 33
Discharge Plan
-
Patient Disposition: Home (Routine Discharge)
Discharge Diagnosis/Procedures: Acute hypoxic respiratory failure
Acute bronchitis after COvid infection
Condition: Good
Diet: As tolerated
Activity: As tolerated
Activity Restrictions/Additional Instructions:
Presented with wheezing and cough shortness of breath weakness. Concern for acute bronchitis/asthma exacerbation secondary to COVID. Was started on steroids supplemental oxygen and breathing therapies. Evaluated by pulmonary and adjusted
breathing treatments transition to prednisone and recommended outpatient pulmonary function testing. Able to wean oxygen to room air.
Referrals:
Cesar Stanley MD [Active, Pulmonary Medicine] - in two weeks
Sean Salazar MD [Family Provider, [facility]]
Prescriptions:
New
loratadine 10 mg Tablet
10 mg PO DAILY Qty: 10 0RF
budesonide-formoterol [Symbicort] 80-4.5 mcg/actuation HFA aerosol inhaler
2 puff inhalation BID Qty: 10.2 0RF
Continued
simvastatin 20 MG tablet
20 mg PO DAILY
lisinopril-hydrochlorothiazide 20-25 mg Tablet
1 tab PO DAILY
tamoxifen 20 mg Tablet
20 mg PO DAILY
loratadine [Claritin] 10 mg Tablet
10 mg PO DAILYPRN PRN (Reason: allergies)
escitalopram oxalate 10 mg Tablet
10 mg PO DAILY
latanoprost 0.005 % drops
1 drp BOTH EYES HS
zinc acetate 50 mg (zinc) Capsule
50 mg PO DAILY
benzonatate 200 mg capsule
200 mg PO TIDPRN PRN (Reason: cough)
ascorbic acid (vitamin C) 500 mg Tablet
500 mg PO DAILY
ProAir RespiClick 90 mcg/actuation Aerosol Powdr Breath Activated
2 inh INHALATION Q4H PRN (Reason: cough)
trazodone 50 mg tablet
50 mg PO HSPRN PRN (Reason: sleep)
Changed
prednisone 10 mg tablet
See Taper PO DAILY Qty: 18 0RF
Taper: Prednisone DC Starting at 40 mg daily
30 mg Daily for 3 Days and 0 Hour
20 mg Daily for 3 Days and 0 Hour
10 mg Daily for 3 Days and 0 Hour
Discontinued
Paxlovid 300 mg (150 mg x 2)-100 mg tablets,dose pack
3 ea PO BID
Patient Comments:
final dose today
Discharge Orders:
Discharge Patient (As Directed); Ordered 04/15/25
Ordered By: Dyllan Young
Discharge Date and Time
Discharge Date/Time: 04/15/25 13:00
Print Language: BOTSWANAN
--- NOTE | 2025-04-15 11:49 | CM ---
Met with patient at bedside to discuss discharge plan; she reported that her daughter will transport her home;
Home health offered; declined; her daughter is a nurse; if they think VN is needed, she will contact Family Physician for home health order
Patient currently resides in an apartment on her daughter's property located @ [address], [place] [address]; 12 steps to enter (a stair lift is available)
[facility] IMM benefit explained; form signed @ [id number]
Plan: Discharge to home; No skilled PT needed
[2025-04-15] MEDS: DUONEB INH (12:25)
[2025-04-15 12:42] VITALS: BP 119/74
--- NOTE | 2025-04-15 13:27 | W.PN.PUL3 ---
Today's Communication / Plan
-
- Patient stable for discharge from pulmonary standpoint
- Symbicort 2 puffs twice a day
- Continue prednisone 40 mg daily and taper over next 7 days
- Outpatient follow-up with pulmonary clinic in about 2 weeks time
- Assess for need for home oxygen prior to discharge
Assessment
-
Patient is a very pleasant 89-year-old female with no known history of lung disease, presents with increasing cough and shortness of breath with wheezing. Patient reports that about 10 days ago she was diagnosed with COVID-19 on a home test which
was treated with Paxlovid initially with minimal improvement in her symptoms. Subsequently she also had a course of prednisone. In view of worsening wheezing and shortness of breath she presented to the emergency room. Chest x-ray was
unremarkable and patient was afebrile with minimally elevated WBC count thought to be related to steroids. Patient was admitted to the hospital and was treated with bronchodilators and steroids. In view of persistent respiratory symptoms,
pulmonary consultation was requested for further input.
Patient denies any known history of asthma and does not require any ongoing inhaler therapy. She reports that in the past very rarely she has used an inhaler in the setting of catching a cold with shortness of breath. Currently she is denying any
hemoptysis, pleuritic discomfort or purulent expectoration. There is occasionally low-volume clear expectoration reported. She overall feels better than her previous presentation and her oxygen requirement has gone down to 2 L now.
No smoking history but exposed to secondhand smoke previously. Denies alcohol.
#1. Acute Asthmatic bronchitis, likely due to recent COVID-19
- Eosinophil count 0-800. Patient was quite bronchospastic on exam with bilateral end expiratory wheezing, improving
- CXR without infiltrates, repeat imaging unchanged
- Symptoms significantly improved, switch to Symbicort 2 puffs twice a day and continue prednisone on tapering dose
- Wean O2 as tolerated, down to 2 ltrs now
- Continues to be afebrile,
- s/p Paxlovid as out patient. Since diagnosis was almost 10 days ago, hold off Remdesivir
- No prior history of asthma, COPD or emphysema. Patient has some secondhand smoke exposure. She will need outpatient pulmonary function testing for further evaluation.
#2. Acute hypoxic respiratory failure
- Secondary to acute asthmatic bronchitis due to COVID-19, with known history of baseline right upper lobe postradiation scarring
- Currently doing well on room air
#3. Chronic right upper lobe scarring, post radiation
- Patient has history of right mastectomy for breast cancer s/p chemotherapy and radiation with right upper lobe postradiation changes. Reviewed her previous imaging as well as current x-ray.
- Continue supportive care for now
- Will pursue pulmonary function testing as outpatient to evaluate for any restriction
#4. Nasal congestion.
- Afrin bid for 3 days
- Ear pressure sensation likely due to nasal congestion, monitor for now, significantly improved symptoms
Other medical diagnoses:
- H/o breast cancer 2019, s/p Right Mastectomy, Chemotherapy and radiation
- Post radiation changes, RUL scarring
- HTN, HLD
Continue DVT prophylaxis, currently on subcu heparin
Total time spent on this consultation/encounter _45___ minutes which includes review of history, physical exam, medications, laboratory data, personal review of imaging, extensive review of outpatient records, discussion with care team and
respiratory therapy.
Data:
CXR 03/2025: No acute cardiopulmonary process.
ECHO 01/2023: Estimated ejection fraction is 70-75%. No regional wall motion abnormalities are seen.
Normal right ventricular size and function.
No significant valvular disease.
LHC 02/2012: 1. Nonobstructive coronary atherosclerosis.
2. Normal left ventricular function.
Chest CT 03/2021: No evidence of an acute fracture. No discrete new bony abnormality.
Old posterior left rib fractures. Degenerative disk and joint disease in the spine.
If symptoms continue consider MRI of the thoracic spine to evaluate for cord compression or nerve root impingement.
Increased opacity in the right apex, likely related to post radiation changes. Patient is status post breast cancer, mastectomy and radiation therapy.
No focal airspace process or pleural effusion. No adenopathy.
Subjective Data
-
Date of Service:
Date of Service: April 15, 2025
Subjective:
Patient overall feeling better. Weaned off oxygen this morning.
Review of Systems
Genitourinary: Other (All 14 systems reviewed and negative except as stated above in the history of present illness.)
Objective Data
Data Reviewed
Vital Signs / I&O / Oxygen:
Vital Signs
Temp Pulse Resp BP Pulse Ox
98.2 F 91 18 119/74 93
04/15/25 12:42 04/15/25 12:42 04/15/25 12:42 04/15/25 12:42 04/15/25 12:42
Intake and Output
04/14/25 04/15/25 04/16/25
06:59 06:59 06:59
Intake Total 480 / 480 960 / 960
Balance 480 / 480 960 / 960
SaO2 93
Nasal Cannula flow liters per 2
minute
Physical Exam
General: Comfortable
HEENT: Normocephalic
Cardiovascular: S1-S2
Respiratory: Clear
GI: Soft and Non Distended
Neurology: Awake and Alert
Skin: Warm
Labs/Micro/Reports
Lab Data
04/11/25 06:01
04/11/25 06:01
--- NOTE | 2025-04-17 15:38 | CM ---
Late Entry
Patient's daughter called requesting visiting nurses, shelter case manager placed 2 calls to calls to patient's daughter, Cecilia Solis to set up visiting nurse services for patient however shelter case manager unable to reach daughter.
== END 2025-04-15 13:00 | disposition home or self-care (01) | DRG 202 ==
LOC: 4 WEST ACU 13:40
PROVIDERS: ADMITTING PHYSICIAN Hospitalist; ATTENDING PHYSICIAN Hospitalist; CONSULT PHYSICIAN Internal Medicine; EMERGENCY PHYSICIAN Emergency Medicine; FAMILY PHYSICIAN Family Medicine
DX: J45.901 Unspecified asthma with (acute) exacerbation (principal); J96.01 Acute respiratory failure with hypoxia; U07.1 COVID-19; J20.8 Acute bronchitis due to other specified organisms; E78.00 Pure hypercholesterolemia, unspecified; I10 Essential (primary) hypertension; G89.29 Other chronic pain; M54.50 Low back pain, unspecified; D50.9 Iron deficiency anemia, unspecified; F41.9 Anxiety disorder, unspecified; G62.9 Polyneuropathy, unspecified; M19.90 Unspecified osteoarthritis, unspecified site; Z60.2 Problems related to living alone; Z77.22 Contact with and (suspected) exposure to environmental tobacco smoke (acute) (chronic); Z66 Do not resuscitate; Z92.21 Personal history of antineoplastic chemotherapy; Z90.11 Acquired absence of right breast and nipple; Z85.3 Personal history of malignant neoplasm of breast; Z91.048 Other nonmedicinal substance allergy status; Z92.3 Personal history of irradiation; Z86.16 Personal history of COVID-19; Z79.51 Long term (current) use of inhaled steroids
CPT/HCPCS: 71046; 80048; 80053; 85025; 94640; 94644; 96374; 97161; 97165; 99285

== ENCOUNTER 2025-04-18 17:31 | Inpatient (IN) | payer OTHER, SELFPAY ==
[2025-04-18] VITALS (12 sets, daily range): BP systolic 101–153; BP diastolic 57–76; BMI 24.2; BMI 23.1
[2025-04-18 13:38] LABS: Hematocrit 35.8 % (37.0-47.0); Hemoglobin 12.6 g/dL (12.0-16.0); Mean Corp Hgb Conc. 35.2 g/dL (33.0-37.0); Mean Corpuscular Hgb 31.3 pg (27.0-31.0); Mean Corpuscular Volume 89.1 fL (81.0-99.0); Mean Platelet Volume 8.7 fL (7.4-10.4); Platelet Count 503 10^3/uL (130-400); Red Blood Cell Count 4.02 10^6/uL (4.20-5.40); Red Cell Dist. Width 12.1 % (11.5-14.5); White Blood Cell Count 26.1 10^3/uL (4.8-10.8)
[2025-04-18 14:03] LABS: ALT (SGPT) 83 U/L (0-35); AST (SGOT) 43 U/L (14-36); Albumin 3.3 g/dl (3.5-5.0); Alkaline Phosphatase 65 U/L (38-126); Blood Urea Nitrogen 18 mg/dl (7-17); Calcium 8.6 mg/dl (8.4-10.2); Carbon Dioxide 28 mmol/L (22-30); Chloride 98 mmol/L (98-107); Estimated Creatinine Clearance 63 ml/min; Glucose 187 mg/dl (70-99); Potassium 3.9 mmol/L (3.5-5.1); Sodium 133 mmol/L (135-145); Total Bilirubin 0.7 mg/dl (0.2-1.3); Total Protein 6.4 g/dl (6.3-8.2); eGFR > 60.00
--- NOTE | 2025-04-18 15:50 | ED.GENMED ---
History of Present Illness
General
Chief Complaint: Breathing Problem
Source: patient
Exam Limitations: none
Time Seen by Provider: 04/18/25 14:35
Nursing documentation reviewed up to this point in time: agreed with
History of Present Illness
History of Present Illness:
see mdm
Past History
Past History
ED Past Medical History: Asthma, Cancer (Breast Ca), HTN and Hypercholesterolemia
ED Past Surgical History: None
Social History
Tobacco: Non-smoker (Has been exposed to secondhand smoke however)
Alcohol: Occasional
Drug: None
Personal:
Living: with family
Employment: Retired
Family History
Family History: CAD; Negative Diabetes, Hypertension, Asthma or Cancer
Review of Systems
Review of Systems
Allergies reviewed?: Yes
All Other Systems: Not applicable
Phy Exam
Physical Exam
Physical Exam:
see mdm
Scores
Heart Failure Risk
Heart Failure Risk Score: Not Applicable
Course
Orders/Labs/Results
Orders:
Orders
04/18/25 13:24
EKG [Electrocardiogram (*1)] Urgent
Reason for Study: Shortness of Breath
04/18/25 13:25
EKG- Treatment ONCE
04/18/25 13:30
CMP [Comprehensive Metabolic Panel] Urgent
Complete Blood Count/No Diff Urgent
04/18/25 14:19
Chest [CR Chest - 2 Views ] Urgent
Comment:
Reason For Exam: cough
04/18/25 Dinner
Regular
04/18/25 16:06
Azithromycin 500 mg/250 ml [Zithromax Infusion] 500 mg in 250 ml IV NOW
CefTRIAXone [Rocephin] 2,000 mg IV NOW STA
04/18/25 16:11
D-Dimer Urgent
Abnormal Lab Results
04/18/25
13:30
WBC 26.1 H 10^3/uL
(4.8-10.8)
RBC 4.02 L 10^6/uL
(4.20-5.40)
Hct 35.8 L %
(37.0-47.0)
MCH 31.3 H pg
(27.0-31.0)
Plt Count 503 H 10^3/uL
(130-400)
Sodium 133 L mmol/L
(135-145)
BUN 18 H mg/dl
(7-17)
Glucose 187 H mg/dl
(70-99)
AST 43 H U/L
(14-36)
ALT 83 H U/L
(0-35)
Albumin 3.3 L g/dl
(3.5-5.0)
04/18/25 13:30
04/18/25 13:30
Vital Signs
Initial and Last Documented VS:
Initial Vital Signs
Temp Pulse Resp BP Pulse Ox
36.9 C 88 23 121/68 88
04/18/25 13:25 04/18/25 13:25 04/18/25 13:25 04/18/25 13:25 04/18/25 13:25
Last Documented Vital Signs
Temp Pulse Resp BP Pulse Ox
36.9 C 84 23 130/60 95
04/18/25 13:25 04/18/25 15:15 04/18/25 15:15 04/18/25 15:01 04/18/25 15:50
MDM/Problems Addressed
Differential Diagnosis Includes:
see mdm
MDM/Problems Addressed:
Note:
CHIEF COMPLAINT(S)
Respiratory distress, persistent cough, and low oxygen saturation.
HISTORY OF PRESENT ILLNESS
The patient is an 89-year-old female with a past medical history significant for breast cancer, status post mastectomy six years ago (Stage 2B)
. She presents with respiratory distress characterized by persistent cough and episodes of low oxygen saturation. The patient was recently discharged from the hospital on after being treated for presumed viral bronchitis. during admission, she
required o2 which was weaned down to RA on discharge.
pt says up until last night, she was doing well not requiring o2. but las tnight her cough and sob wrosened. this morning when her daughter checked on her, pt was noticeably sob and her pulse ox was 84%; she was put on 4L which was from her
's tank who is ; her pulse ox came up to 90% but she was still coughing and wheezing; so they called 911.
The patient denies chest pain and did not report chest discomfort. She has not received antibiotics for her condition.
feels weak and wiped out
ADDITIONAL HISTORY OBTAINED FROM SOURCES OTHER THAN THE PATIENT
According to the family member, the patient was doing well post-discharge from the hospital until last night when her oxygen levels dropped, and her cough intensified, prompting concerns. A nebulizer treatment administered by EMS improved her
breathing.
CHRONIC MEDICAL CONDITIONS SIGNIFICANTLY AFFECTING CARE
Chronic conditions affecting care: Breast cancer (treated), sleep apnea, presumed viral bronchitis, potential pneumonia.
PHYSICAL EXAM
Nursing notes reviewed and vital signs reviewed.
- Respiratory: Audible crackles. No significant wheezing detected during evaluation.
cardiac: no tachycardia, no edema in legs
pale
- General: The patient appears fatigued and is described as 'wore out.'
PLAN
Facilitate chest X-ray to evaluate for possible pneumonia. Discuss potential hospital admission for closer monitoring and treatment, particularly if pneumonia is confirmed. Evaluate the need for antibiotics based on imaging findings. Consider the
continuation of respiratory support and reassessment of steroid dose. Reassess need for nebulizer treatments based on clinical status. Coordination with home care services upon discharge is advised.
DIFFERENTIAL DIAGNOSIS
The Differential Diagnosis includes, in no particular order and is not limited to:
1. Viral bronchitis
2. Bacterial pneumonia
3. Chronic obstructive pulmonary disease exacerbation
4. Congestive heart failure
5. Pulmonary embolism
6. Asthma exacerbation
7. Recurrent malignant disease
8. Interstitial lung disease
9. Aspiration pneumonia
10. Anemia-induced dyspnea
1600 -
pt clinically appears like pna
(worse cough, sob, hypoxia, elevated WBC, crackles in base)
and requires O2 which is new
(she had o2 in th ehospital but was weaned off and didn't need it until this am)
cxr indep reivewed, ? mild edema but no obvious infiltrate
wbc elevation could possibly be due to steroids but it is much higher than when she was admitted and pt is acutely worse
will clinically treat for pna (or bacterial bronchitis)
duonebs
o2
pending d dimer
*Pulse Oximetry
SaO2: 95
Nasal Cannula flow liters per minute: 2
Oxygen Mode of Delivery: Room air
*Critical Care Note
Total Time (30-74mins, 75-104mins- exclusive of procedures): Not Applicable
ED Attending Note
-
Portions of this chart may have been created with voice recognition software.� Occasional wrong word or��sound alike� substitutions may have occurred due to the inherent limitations of voice recognition software.
Discharge Plan
Departure
Patient Disposition: Admit
Date of Disposition: 04/18/25
Time of Disposition: 16:11
Admit to: Med/Surg
Presentation/result/management discussed w/ accepting MD/DO: Hospitalist
Condition: Fair
Covid-19: Not Applicable
Discharge Problem:
Pneumonia, Hypoxia
Prescriptions:
No Action
simvastatin 20 MG tablet
20 mg PO DAILY
lisinopril-hydrochlorothiazide 20-25 mg Tablet
1 tab PO DAILY
tamoxifen 20 mg Tablet
20 mg PO DAILY
escitalopram oxalate 10 mg Tablet
10 mg PO DAILY
latanoprost 0.005 % drops
1 drp BOTH EYES HS
zinc acetate 50 mg (zinc) Capsule
50 mg PO DAILY
benzonatate 200 mg capsule
200 mg PO TIDPRN PRN (Reason: cough)
ascorbic acid (vitamin C) 500 mg Tablet
500 mg PO DAILY
ProAir RespiClick 90 mcg/actuation Aerosol Powdr Breath Activated
2 inh INHALATION R Q4HPRN PRN (Reason: cough)
trazodone 50 mg tablet
50 mg PO HS
loratadine 10 mg Tablet
10 mg PO DAILY Qty: 10 0RF
prednisone 10 mg Tablet
10 mg PO DIRECTED
Rx Instructions:
starting 04/15/25 take 30mg daily for 3 day then 20mg daily for 3 day then 10mg daily for 3 day
Delsym 30 mg/5 mL Liquid
15 mg PO DAILYPRN PRN (Reason: cough)
budesonide-formoterol [Symbicort] 80-4.5 mcg/actuation HFA aerosol inhaler
2 puff inhalation R BID
Referrals:
Sean Salazar MD [Family Provider, Family Practice]
Interventions
Interventions:
*Risk Screen - Suicide Last Done: 04/18/25 13:25
*General Assessment Last Done: 04/18/25 13:25
*Neglect/Abuse Screening Last Done: 04/18/25 13:25
*ED- Fall Risk Assessment Last Done: 04/18/25 13:25
*ED COVID-19 Vaccine History Last Done: 04/18/25 13:25
ED- Cardiac Assessment Last Done: 04/18/25 13:49
ED- Pulmonary Assessment Last Done: 04/18/25 13:49
Discharge Date and Time
Print Language: SWISS
--- NOTE | 2025-04-18 16:52 | HPS.HSE ---
Family Physician
-
Family Physician: Sean Salazar
Chief Complaint
-
cough/hypoxia
History of Present Illness
Patient is an 89-year-old female who was recently hospitalized from April 12, 2025 to April 15, 2025 with acute postviral bronchitis along with asthma exacerbation presumed secondary to COVID. Patient was discharged on oral steroid taper and given an
inhaler which she was not shown how to use. At that admission she was seen in consultation by pulmonary. Patient was discharged in April 15, 2025 and her daughter who accompanies her today states that on Saturday she was feeling well.
Overnight she had a significant coughing episode and was hypoxic. Patient has an oxygen tank from her (who has since ). Her pulse ox at home was in the mid 80s and she was placed on 2 L of oxygen at her other daughter's
suggestion (she is a nurse). Unfortunately, pulse ox did not improve and she was increased to 4 L of oxygen. Patient denies any fevers or chills. The daughter who accompanies her states that she thought she did better on the IV steroids than the
oral ones. She also was not discharged on any antibiotics.
Workup here in the emergency department finds her to have a white count of 26,000 (it was 15,000 on the day of discharge). By my exam, she has rhonchi in the left base. Chest x-ray here in the emergency department is being read as mild
interstitial cardiogenic pulmonary edema but she does not examine that way. I am concerned of a pneumonia at the left base. Patient will be admitted.
Medical History
Past Medical History
Past Medical History: Reports Other
Additional Past Medical History:
Breast cancer status post mastectomy with radiation and chemotherapy
Neuropathy from chemotherapy
History of iron deficiency anemia
History of essential hypertension
Hyperlipidemia
Chronic low back pain
Past Surgical History: Reports Other
Additional Past Surgical History:
Mastectomy with lumpectomy
Social History
Tobacco: Non-smoker
Alcohol: None
Drug: None
Living: Alone
Family History
Family History: Not pertinent
Allergies / Home Medications
Allergies reflects when Allergies were last updated in [facility].
Home Medications with original date entered in [facility]
Allergy/Medication List:
Allergies
Allergy/AdvReac Type Severity Reaction Status Date / Time
adhesive Allergy Rash-patient Verified 04/18/25 13:35
states
sensitivity
adhesive tape Allergy Rash-patient Verified 04/18/25 13:35
states
sensitivity
Home Medications
simvastatin 20 mg tablet 20 mg PO DAILY High Cholesterol 11/26/11
escitalopram oxalate 10 mg tablet 10 mg PO DAILY Mental Health/Anxiety 10/08/24
lisinopril 20 mg-hydrochlorothiazide 25 mg tablet 1 tab PO DAILY Blood Pressure 10/08/24
tamoxifen 20 mg tablet 20 mg PO DAILY Cancer 10/08/24
albuterol sulfate 90 mcg/actuation breath activated powder inhaler (ProAir RespiClick) 2 inh inhalation R Q4HPRN PRN cough 04/10/25
ascorbic acid (vitamin C) 500 mg tablet 500 mg PO DAILY Supplement 04/10/25
benzonatate 200 mg capsule 200 mg PO TIDPRN PRN cough 04/10/25
latanoprost 0.005 % eye drops 1 drp BOTH EYES HS Eye Condition 04/10/25
trazodone 50 mg tablet 50 mg PO HS 04/10/25
zinc acetate 50 mg (zinc) capsule 50 mg PO DAILY Supplement 04/10/25
loratadine 10 mg tablet 10 mg PO DAILY #10 tabs 04/14/25
budesonide-formoterol HFA 80 mcg-4.5 mcg/actuation aerosol inhaler (Symbicort) 2 puff inhalation R BID 04/18/25
dextromethorphan HBr 30 mg/5 mL oral liquid 15 mg PO DAILYPRN PRN cough 04/18/25
prednisone 10 mg tablet 10 mg PO DIRECTED 04/18/25
Review of Systems
-
History Source: Patient
Constitutional: Denies Fever, Weight Gain or Chills
EENT: Reports No Symptoms
Respiratory: Reports Cough and Trouble Breathing
Cardiac: Reports No Symptoms
Abdomen/GI: Reports No Symptoms; Denies Abdominal Pain, Nausea, Vomiting, Diarrhea or Constipated
: Reports No Symptoms
Musculoskeletal: Reports No Symptoms
Skin: Reports No Symptoms
Neurological: Reports No Symptoms
Endocrine: Reports No Symptoms
Hematologic/Lymphatic: Reports No Symptoms
Psych: Reports No Symptoms
Physical Exam
Vital Signs
Vital Signs
Temp Pulse Resp BP Pulse Ox
98.4 F 84 23 130/60 95
04/18/25 13:25 04/18/25 15:15 04/18/25 15:15 04/18/25 15:01 04/18/25 15:50
Physical Exam
General: Well Developed, Well Nourished and No Apparent Distress
HEENT: NormoCephalic, Anicteric, Atraumatic and Oxygen (2L)
Respiratory: Rhonchi (Left base); No Wheezes or Crackles
Cardiac: S1/S2 and Regular Rhythm; No Murmur
GI: Soft, Non Tender, Non Distended and Normal Bowel Sounds
Musculoskeletal: No Clubbing, No Cyanosis and No Edema
Skin: Warm and Dry
Neuro: Awake and Alert
Psych: Calm
Laboratory Results
-
04/18/25 13:30
04/18/25 13:30
Laboratory Results
Total Bilirubin 0.7 mg/dl (0.2-1.3) 04/18/25 13:30
AST 43 U/L (14-36) H 04/18/25 13:30
ALT 83 U/L (0-35) H 04/18/25 13:30
Alkaline Phosphatase 65 U/L (38-126) 04/18/25 13:30
Impression/Plan
-
Patient is an 89-year-old female
Acute hypoxemic respiratory failure--patient was admitted with acute postviral bronchitis and was weaned off oxygen last admission--I have clinical concern for pneumonia from secondary bacterial infection--chest x-ray is reading mild interstitial
cardiogenic pulmonary edema but the patient does not examine that way; WBC count 26,000 and rhonchi Left base --ADMIT to MED/SURG--change oral steroids to IV--restart nebulizer treatments, start IV Rocephin and doxycycline--reconsult pulmonary--will
check COVID/influenza/resp culture/lactate/urine legionella and strep antigens/procalcitonin--cont incentive spirometer, acapella, pulmicort and duo nebs--cough med--
Essential hypertension--continue lisinopril/hydrochlorothiazide--follow sodium levels
Hyperlipidemia--continue simvastatin
History of breast cancer--continue tamoxifen
DVT proph
code status -- DNR/DNI
[2025-04-18] MEDS: ROCEPHIN 2000 MG IV (17:09)
[2025-04-18 17:21] LABS: D-Dimer 0.98 ug/mlFEU (0.00-0.50)
[2025-04-18] MEDS: ZITHROMAX INFUSION 250 IV (17:33)
--- NOTE | 2025-04-18 18:17 | EDRN ---
this TRANSMISSION CALIBRATION ENGINEER notified the admitting hospitalist Dr Sosa of this pts elevated d-dimer result via [employer]. NO new orders at this time.
[2025-04-18 18:36] LABS: COVID-19 Antigen Negative (Negative)
--- NOTE | 2025-04-18 20:20 | PTCARENOTE ---
pt is aaox3, no c/o chest pain. PARISH wearing 2L Spo2=98%. reviewed plan of care and medications. pt is oriented to room w/ call molina in place.
[2025-04-18] MEDS: PULMICORT 0.25 MG INH (20:43)
[2025-04-18 21:44] LABS: Lactic Acid 2.2 mmol/L (0.7-2.0)
[2025-04-18] MEDS: VIBRAMYCIN 100 MG PO (22:07)
[2025-04-18] MEDS: DESYREL 50 MG PO (22:07)
[2025-04-18] MEDS: LOVENOX 40 MG SC (22:08)
[2025-04-18] MEDS: LIPITOR 10 MG PO (22:08)
[2025-04-18] MEDS: DECADRON 4 MG IV (22:08)
[2025-04-18] MEDS: XALATAN OPHTHALMIC SOLUTION 1 DROP BOTH EYES (22:09)
[2025-04-19 02:21] LABS: Lactic Acid 1.2 mmol/L (0.7-2.0)
[2025-04-19] MEDS: DECADRON 4 MG IV ×3 (03:46→19:43)
[2025-04-19 06:00] VITALS: BMI 23.0
--- NOTE | 2025-04-19 06:50 | CON.PUL ---
Consultation
Consultation Request
Date/Time Consultation Requested: 04/18/2025
Date/Time Consultation Performed: 04/19/2025
Requesting Provider: Yossi Dhillon
Performing Provider: Cesar Stanley
Reason for Consultation: Hypoxia
Medical History
-
Chief Complaint: Cough, shortness of breath
History of Present Illness:
Patient is a very pleasant 89-year-old female with no known history of lung disease, presents with increasing cough and shortness of breath with hypoxia.
She was recently discharged from hospital for acute asthmatic bronchitis after recent COVID-19 diagnosis at home. Patient reported that about 12 days ago she was diagnosed with COVID-19 on a home test which was treated with Paxlovid initially with
minimal improvement in her symptoms. Subsequently she also had a course of prednisone. In view of worsening wheezing and shortness of breath she presented to the emergency room. Chest x-ray was unremarkable and patient was afebrile with minimally
elevated WBC count thought to be related to steroids. Patient was admitted to the hospital and was treated with bronchodilators and steroids. In view of persistent respiratory symptoms, pulmonary consultation was requested for further input. She
responded well to steroids and bronchodilators and was discharged on Prednisone taper along with Symbicort
Patient reportedly did well for 1 day and then woke up with increased dyspnea and was noted to be hypoxic. She used O2 available at home and required 4 L/min. She was subsequently brought to ED. Work up included elevated WBC count and CXR suggested
possible pulmonary congestion. Clinically she was felt to have PNA and Rocephin/Azithormycin were started. Lactate was mildly elevated, responded to treatment with improvement. Pulmonary consult was requested for further input.
Patient denies any known history of asthma and does not require any ongoing inhaler therapy. She reports that in the past very rarely she has used an inhaler in the setting of catching a cold with shortness of breath. Currently she is denying any
hemoptysis, pleuritic discomfort or purulent expectoration.
No smoking history but exposed to secondhand smoke previously. Denies alcohol.
Past Medical History
Past Medical History: Reports Other (asthma, breast cancer status post right mastectomy in 2019 with chemotherapy, hypertension, hypercholesteremia, chronic neuropathy, osteoarthritis, chronic lumbar back pain, iron deficiency anemia, anxiety,)
Past Surgical History: Reports None
Social History
Tobacco: Non-smoker
Alcohol: None
Drug: None
Family History
Family History: Not pertinent
Allergies / Home Medications
Allergies / Home Medications
Allergies
Allergy/AdvReac Type Severity Reaction Status Date / Time
adhesive Allergy Rash-patient Verified 04/18/25 13:35
states
sensitivity
adhesive tape Allergy Rash-patient Verified 04/18/25 13:35
states
sensitivity
Home Medications
�Medication �Instructions �Recorded �Confirmed �Last Taken �Type
simvastatin 20 mg tablet 20 mg PO DAILY High Cholesterol 11/26/11 04/18/25 04/18/25 History
escitalopram oxalate 10 mg tablet 10 mg PO DAILY Mental 10/08/24 04/18/25 04/18/25 History
Health/Anxiety
lisinopril 20 1 tab PO DAILY Blood Pressure 10/08/24 04/18/25 04/18/25 History
mg-hydrochlorothiazide 25 mg tablet
tamoxifen 20 mg tablet 20 mg PO DAILY Cancer 10/08/24 04/18/25 04/18/25 History
albuterol sulfate 90 mcg/actuation 2 inh inhalation R Q4HPRN PRN cough 04/10/25 04/18/25 Unknown History
breath activated powder inhaler
(ProAir RespiClick)
ascorbic acid (vitamin C) 500 mg 500 mg PO DAILY Supplement 04/10/25 04/18/25 04/18/25 History
tablet
benzonatate 200 mg capsule 200 mg PO TIDPRN PRN cough 04/10/25 04/18/25 04/10/25 History
latanoprost 0.005 % eye drops 1 drp BOTH EYES HS Eye Condition 04/10/25 04/18/25 04/17/25 History
trazodone 50 mg tablet 50 mg PO HS 04/10/25 04/18/25 04/17/25 History
zinc acetate 50 mg (zinc) capsule 50 mg PO DAILY Supplement 04/10/25 04/18/25 04/18/25 History
loratadine 10 mg tablet 10 mg PO DAILY #10 tabs 04/14/25 04/18/25 04/18/25 Rx
budesonide-formoterol HFA 80 2 puff inhalation R BID 04/18/25 04/18/25 04/18/25 History
mcg-4.5 mcg/actuation aerosol
inhaler (Symbicort)
dextromethorphan HBr 30 mg/5 mL 15 mg PO DAILYPRN PRN cough 04/18/25 04/18/25 04/18/25 History
oral liquid
prednisone 10 mg tablet 10 mg PO DIRECTED 04/18/25 04/18/25 04/18/25 History
Review of Systems
-
Hematologic/Lymphatic: Other (All 14 systems reviewed and negative except as stated above in the history of present illness.)
Vitals / Labs / Diagnostic Testing
Vital Signs
Temp Pulse Resp BP Pulse Ox
98.1 F 74 20 153/76 98
04/18/25 22:45 04/18/25 22:45 04/18/25 22:45 04/18/25 22:45 04/19/25 00:56
Microbiology
04/18/25 18:13 Nasal Swab Influenza Types A & B (KATARZYNA) - Final
Negative for Influenza A & B, NAAT
Negative results must be combined with clinical observations
and patient history.
Nucleic Acid Amplification test (NAAT)performed on the
[employer] platform.
Diagnostic Testing:
Physical Exam
-
HEENT: Normocephalic
Cardiovascular: S1/S2
Respiratory: Rhonchi
GI: Soft and Non Distended
Neurology: Awake and Alert
Skin: Warm
General: Comfortable
Assessment
-
#1. Acute hypoxic respiratory failure.
- Recent COVID-19 treated with Paxlovid, complicated by hospitalization for asthmatic bronchitis, now increased hypoxia, improving
- Procalcitonin is negative, discontinue Rocephin. Can continue doxycycline for atypical coverage.
- CT scan negative for pulmonary embolism, no large consolidation noted. Mild right middle lobe tree-in-bud appearance noted which could be related to aspiration, infection, continue atypical coverage with doxycycline
#2. Acute asthmatic bronchitis
- Switch Duoneb to scheduled TID
- Continue Duoneb and IV Steroids
- Continue budesonide, clinically improving
#3. Recent COVID-19, diagnosed at home
- Received Paxlovid as out patient
- Too late in course to benefit from Remdesivir.
Other medical diagnoses:
- HTN
- HLD
- H/o CA breast, s/p mastectomy and radiation with RUL post radiation changes
DVT prophylaxis with Lovenox.
Total time spent on this consultation/encounter __55__ minutes which includes review of history, physical exam, medications, laboratory data, personal review of imaging, extensive review of outpatient records, discussion with care team and
respiratory therapy.
Data:
CXR 04/18/2025: 1. Mild interstitial cardiogenic pulmonary edema.
2. Mild cardiomegaly.
3. Mild to moderate elevation of the anterior right hemidiaphragm.
4. Diffuse bone demineralization.
CXR 03/2025: No acute cardiopulmonary process.
ECHO 01/2023: Estimated ejection fraction is 70-75%. No regional wall motion abnormalities are seen.
Normal right ventricular size and function.
No significant valvular disease.
LHC 02/2012: 1. Nonobstructive coronary atherosclerosis.
2. Normal left ventricular function.
Chest CT 03/2021: No evidence of an acute fracture. No discrete new bony abnormality.
Old posterior left rib fractures. Degenerative disk and joint disease in the spine.
If symptoms continue consider MRI of the thoracic spine to evaluate for cord compression or nerve root impingement.
Increased opacity in the right apex, likely related to post radiation changes. Patient is status post breast cancer, mastectomy and radiation therapy.
No focal airspace process or pleural effusion. No adenopathy.
[2025-04-19 07:12] LABS: % Basophils 0.2 % (0-2); % Immature Granulocytes 0.9 % (0-0.5); % Lymphocytes 5.7 % (20.5-51.1); % Monocytes 1.8 % (1.7-9.3); % Neutrophils 91.4 % (42.2-75.2); Absolute Immature Granulocytes 0.1 10^3/uL (0-0.05); Absolute Lymphocytes 0.9 10^3/uL (1.2-3.4); Absolute Monocytes 0.3 10^3/uL (0.1-0.6); Absolute Neutrophils 13.9 10^3/uL (1.4-6.5); Hematocrit 34.3 % (37.0-47.0); Hemoglobin 11.6 g/dL (12.0-16.0); Mean Corp Hgb Conc. 33.8 g/dL (33.0-37.0); Mean Corpuscular Hgb 30.5 pg (27.0-31.0); Mean Corpuscular Volume 90.3 fL (81.0-99.0); Mean Platelet Volume 8.8 fL (7.4-10.4); Nucleated Red Blood Cells % 0 %; Platelet Count 480 10^3/uL (130-400); Red Cell Dist. Width 12.1 % (11.5-14.5); White Blood Cell Count 15.2 10^3/uL (4.8-10.8)
[2025-04-19 07:47] VITALS: BP 141/77
[2025-04-19] MEDS: DUONEB 3 ML INH ×3 (07:57→20:03)
[2025-04-19] MEDS: PULMICORT 0.25 MG INH ×2 (07:57→20:03)
[2025-04-19 08:07] LABS: Procalcitonin 0.05 ng/ml (0.0-0.25)
[2025-04-19 08:18] LABS: Blood Urea Nitrogen 16 mg/dl (7-17); Calcium 8.5 mg/dl (8.4-10.2); Carbon Dioxide 28 mmol/L (22-30); Chloride 102 mmol/L (98-107); Estimated Creatinine Clearance 63 ml/min; Glucose 145 mg/dl (70-99); Potassium 4.4 mmol/L (3.5-5.1); Sodium 135 mmol/L (135-145); eGFR > 60.00
[2025-04-19] MEDS: ORETIC 25 MG PO (08:28)
[2025-04-19] MEDS: ZESTRIL 20 MG PO (08:28)
[2025-04-19] MEDS: VIBRAMYCIN 100 MG PO ×2 (08:28→19:43)
[2025-04-19] MEDS: LEXAPRO 10 MG PO (08:28)
[2025-04-19] MEDS: ZINC 50 MG PO (08:28)
[2025-04-19] MEDS: NOLVADEX 20 MG PO (08:28)
[2025-04-19] MEDS: VITAMIN C 500 MG PO (08:28)
--- NOTE | 2025-04-19 09:37 | W.PN.HOSP.TC ---
Documented by User: Adan Lemons DO, Resident 04/19/25 13:03
Today's Communication/Plan
-
.
Assessment / Plan
Assessment / Plan
Aracelis Mcwilliams is an 89-year-old female with a past medical history of breast CA (s/p mastectomy, RAD/chemo), JUAN JOSE, HTN, HLD with a recent admission 04/12 - 04/15 for acute postviral bronchitis/acute asthma exacerbation possibly secondary to COVID who
was started on prednisone and discharged home. Patient returned to hospital due to increased coughing episode, hypoxemia to saturation in the 80s on 4 L. Patient admitted, started on antibiotics, transitioned to IV steroids, and placed on
supplemental oxygen.
1. Acute hypoxic respiratory failure secondary to pneumonia versus pulmonary edema versus PE
- Patient presented requiring 4 L of O2 by nasal cannula to saturate at 88%.
- On 2L NC this a.m., saturating at 98%.
- Wean as tolerated.
- CXR (04/18): Mild interstitial cardiogenic pulmonary edema, mild cardiomegaly
- Despite above, patient appeared more like pneumonia clinically on admission.
- Procalcitonin negative, this may be more likely viral pneumonia versus viral bronchitis
- Leukocytosis: WBC 26.1 on admission, 15.2 today
- Elevated D-Dimer (0.98)
- CTA Chest (04/19): Negative for pulmonary embolism, no evidence for right heart strain, couple clusters of small peripheral/tree-in-bud nodules within the right lung compatible with bronchiolitis (infectious versus inflammatory)
- Continue IV steroids, nebulizers, ICS, Acapella, Pulmicort
- Consider decrease dose of steroid (await pulm to see)
- Consider d/c abx (await pulm to see)
- Pulm consult (will see today)
2. Essential hypertension
- Continue lisinopril/HCTZ
3. Thrombocytosis
- Likely reactive, continue to monitor
4. Hyperlipidemia
- Continue statin
5. Hx of breast CA
- Continue tamoxifen
Code Status: DNR
Diet: Regular
DVT PPx: On Eliquis
Anticipated Discharge: Within 24 hours
Subjective/Interval History
-
Date of Service: April 19, 2025
Patient seen and examined while sitting up on edge of bed, just having returned from CT Chest. Patient states that she is feeling better than she has in the past 2 weeks today. Feels like she wants to walk around. Notes continued cough. Otherwise no
shortness of breath, chest pain. Currently 98% on 2L.
Objective Data
-
Labs:
Laboratory Results
04/19/25
06:54
WBC 15.2 H
Hgb 11.6 L
Hct 34.3 L
Plt Count 480 H
Sodium 135
Potassium 4.4
Chloride 102
Carbon Dioxide 28
BUN 16
Creatinine 0.6
Glucose 145 H
Calcium 8.5
Vital Signs:
Vital Signs
Temp Pulse Resp BP Pulse Ox
98.3 F 86 16 141/77 96
04/19/25 07:47 04/19/25 08:02 04/19/25 08:02 04/19/25 07:47 04/19/25 08:02
I&O
04/18/25 04/19/25 04/20/25
06:59 06:59 06:59
Intake Total 960 / 960
Balance 960 / 960
Review of Systems
-
History Source: Patient
Constitutional: Reports No Symptoms
Respiratory: Reports Cough; Denies Trouble Breathing
Abdomen/GI: Reports No Symptoms
Neuro: Reports No Symptoms
Physical Exam
-
General: Well Developed, Well Nourished, No Apparent Distress, Comfortable and Conversant; Negative Respiratory Distress or Fever
HEENT: Normocephalic, Atraumatic, Moist Mucous Membranes and Anicteric
Respiratory: Rhonchi (left lower lung), Non Labored Respirations and Other (otherwise clear to auscultation bilaterally)
Cardiac: Regular Rhythm and S1/S2
GI: Soft
Skin: Warm
Neuro: Awake, Alert, Oriented and Nonfocal/Grossly Intact
Psych: Calm
Data Reviewed
-
CT Scan: Report Reviewed by me
Labs: Labs Reviewed by me and Discussed with Patient

Documented by User: Yossi Dhillon DO 04/19/25 13:14
Assessment / Plan
Assessment / Plan
Aracelis Mcwilliams is an 89-year-old female with a past medical history of breast CA (s/p mastectomy, RAD/chemo), JUAN JOSE, HTN, HLD with a recent admission 04/12 - 04/15 for acute postviral bronchitis/acute asthma exacerbation possibly secondary to COVID who
was started on prednisone and discharged home. Patient returned to hospital due to increased coughing episode, hypoxemia to saturation in the 80s on 4 L. Patient admitted, started on antibiotics, transitioned to IV steroids, and placed on
supplemental oxygen.
1. Acute hypoxic respiratory failure secondary to pneumonia versus pulmonary edema versus PE
- Patient presented requiring 4 L of O2 by nasal cannula to saturate at 88%.
- On 2L NC this a.m., saturating at 98%.
- Wean as tolerated.
- CXR (04/18): Mild interstitial cardiogenic pulmonary edema, mild cardiomegaly
- Despite above, patient appeared more like pneumonia clinically on admission.
- Procalcitonin negative, this may be more likely viral pneumonia versus viral bronchitis
- Leukocytosis: WBC 26.1 on admission, 15.2 today
- Elevated D-Dimer (0.98)
- CTA Chest (04/19): Negative for pulmonary embolism, no evidence for right heart strain, couple clusters of small peripheral/tree-in-bud nodules within the right lung compatible with bronchiolitis (infectious versus inflammatory)
- Continue IV steroids, nebulizers, ICS, Acapella, Pulmicort
- Consider decrease dose of steroid (await pulm to see)
- Consider d/c abx (await pulm to see)
- Pulm consult (will see today)
2. Essential hypertension
- Continue lisinopril/HCTZ
3. Thrombocytosis
- Likely reactive, continue to monitor
4. Hyperlipidemia
- Continue statin
5. Hx of breast CA
- Continue tamoxifen
Code Status: DNR
Diet: Regular
DVT PPx: Lovenox
[2025-04-19 10:52] VITALS: BP 127/58; PULSE 90; O2SAT 98
--- NOTE | 2025-04-19 13:31 | CM ---
CM reviewed chart, patient seen bedside, initial assessment completed. Patient resides independently on her daughters property, apartment above daughters garage, about 12 steps to enter. Patient reports she is independent with ADLs/IADLs, has a
stair lift from her but does not use it. Patient denies VN or SNF. Patient confirms PCP Sean Salazar, pharmacy [facility], prescription coverage through [facility] [employer]. Per PT, no skilled need. Patient confirms transportation when stable for
discharge home. CM will continue to follow for all discharge planning needs.
Plan; home no needs.
[2025-04-19 15:00] VITALS: BP 136/64
[2025-04-19] MEDS: LOVENOX 40 MG SC (17:49)
[2025-04-19] MEDS: XALATAN OPHTHALMIC SOLUTION 1 DROP BOTH EYES (21:35)
[2025-04-19] MEDS: LIPITOR 10 MG PO (21:35)
[2025-04-19] MEDS: DESYREL 50 MG PO (21:35)
[2025-04-19 22:56] VITALS: BP 123/57
[2025-04-20 05:19] VITALS: BMI 23.3
[2025-04-20 07:00] VITALS: BP 142/76
[2025-04-20] MEDS: DUONEB 3 ML INH ×2 (07:46→14:49)
[2025-04-20] MEDS: PULMICORT 0.25 MG INH (07:46)
[2025-04-20 08:36] LABS: Hematocrit 35.3 % (37.0-47.0); Hemoglobin 12.5 g/dL (12.0-16.0); Mean Corp Hgb Conc. 35.4 g/dL (33.0-37.0); Mean Corpuscular Hgb 31.1 pg (27.0-31.0); Mean Corpuscular Volume 87.8 fL (81.0-99.0); Mean Platelet Volume 8.6 fL (7.4-10.4); Platelet Count 543 10^3/uL (130-400); Red Blood Cell Count 4.02 10^6/uL (4.20-5.40); White Blood Cell Count 19.2 10^3/uL (4.8-10.8)
[2025-04-20] MEDS: ZESTRIL 20 MG PO (08:39)
[2025-04-20] MEDS: ORETIC 25 MG PO (08:39)
[2025-04-20] MEDS: VIBRAMYCIN 100 MG PO (08:39)
[2025-04-20] MEDS: ZINC 50 MG PO (08:39)
--- NOTE | 2025-04-20 08:39 | W.PN.HOSP.TC ---
Today's Communication/Plan
-
.
Assessment / Plan
Assessment / Plan
Aracelis Mcwilliams is an 89-year-old female with a past medical history of breast CA (s/p mastectomy, RAD/chemo), JUAN JOSE, HTN, HLD with a recent admission 04/12 - 04/15 for acute postviral bronchitis/acute asthma exacerbation possibly secondary to COVID who
was started on prednisone and discharged home. Patient returned to hospital due to increased coughing episode, hypoxemia to saturation in the 80s on 4 L. Patient admitted, started on antibiotics, transitioned to IV steroids, and placed on
supplemental oxygen.
1. Acute hypoxic respiratory failure secondary to pneumonia versus pulmonary edema versus PE
- Patient presented requiring 4 L of O2 by nasal cannula to saturate at 88%.
- On room air this AM, saturating at 97%.
- Wean as tolerated.
- CXR (04/18): Mild interstitial cardiogenic pulmonary edema, mild cardiomegaly
- Despite above, patient appeared more like pneumonia clinically on admission.
- Procalcitonin negative, this may be more likely viral pneumonia versus viral bronchitis
- Leukocytosis: WBC 26.1 on admission down trended to 15.2: 19.2 this a.m., likely steroid-induced
- Repeat CBC in 1 week
- Elevated D-Dimer (0.98)
- CTA Chest (04/19): Negative for pulmonary embolism, no evidence for right heart strain, couple clusters of small peripheral/tree-in-bud nodules within the right lung compatible with bronchiolitis (infectious versus inflammatory)
- Transition IV to oral steroids and taper
- Discharged on budesonide and albuterol twice daily nebulizers
- Discharged on doxycycline (course total of 7 days)
2. Essential hypertension
- Continue lisinopril/HCTZ
3. Thrombocytosis
- Likely reactive, continue to monitor
4. Hyperlipidemia
- Continue statin
5. Hx of breast CA
- Continue tamoxifen
Code Status: DNR
Diet: Regular
DVT PPx: Lovenox
Anticipated Discharge: Today
Subjective/Interval History
-
Date of Service: April 20, 2025
Patient seen and examined, was walking around the room, having just had ordered breakfast. Patient with no acute complaints this morning. States that she is feeling the best she has felt over the past couple of weeks and is excited to go home.
Objective Data
-
Labs:
Laboratory Results
04/20/25
08:21
WBC 19.2 H
Hgb 12.5
Hct 35.3 L
Plt Count 543 H
Vital Signs:
Vital Signs
Temp Pulse Resp BP Pulse Ox
98.3 F 82 18 142/76 97
04/20/25 07:00 04/20/25 07:49 04/20/25 07:49 04/20/25 07:00 04/20/25 07:49
I&O
04/19/25 04/20/25 04/21/25
06:59 06:59 06:59
Intake Total 960 / 960 900 / 900
Balance 960 / 960 900 / 900
Review of Systems
-
History Source: Patient
Respiratory: Reports No Symptoms
Cardiac: Reports No Symptoms
Abdomen/GI: Reports No Symptoms
Neuro: Reports No Symptoms
Physical Exam
-
General: No Apparent Distress, Comfortable and Conversant
HEENT: Normocephalic, Atraumatic and Moist Mucous Membranes
Respiratory: Clear to Auscultation; Negative Wheezes, Rales or Rhonchi
Cardiac: Regular Rhythm and S1/S2
Musculoskeletal: No Clubbing, No Cyanosis and No Edema
Skin: Warm and Dry
Neuro: Awake and Alert
Psych: Calm
Data Reviewed
-
Labs: Labs Reviewed by me and Discussed with Patient
[2025-04-20] MEDS: LEXAPRO 10 MG PO (08:40)
[2025-04-20] MEDS: VITAMIN C 500 MG PO (08:40)
[2025-04-20] MEDS: DECADRON 4 MG IV (08:40)
[2025-04-20] MEDS: NOLVADEX 20 MG PO (08:40)
--- NOTE | 2025-04-20 12:53 | W.PN.PUL3 ---
Today's Communication / Plan
-
- Stable for discharge from pulmonary standpoint
- Recommend continuing doxycycline twice a day for a total of 7 days
- Discontinue inhaler therapy, patient unable to use
- Recommend albuterol and budesonide nebulized twice a day scheduled until seen in pulmonary clinic
- Recommend discharging on tapering dose of prednisone over next 7 days
- Will arrange outpatient follow-up with pulmonary clinic
Assessment
-
Patient is a very pleasant 89-year-old female with no known history of lung disease, presents with increasing cough and shortness of breath with hypoxia.
She was recently discharged from hospital for acute asthmatic bronchitis after recent COVID-19 diagnosis at home. Patient reported that about 12 days ago she was diagnosed with COVID-19 on a home test which was treated with Paxlovid initially with
minimal improvement in her symptoms. Subsequently she also had a course of prednisone. In view of worsening wheezing and shortness of breath she presented to the emergency room. Chest x-ray was unremarkable and patient was afebrile with minimally
elevated WBC count thought to be related to steroids. Patient was admitted to the hospital and was treated with bronchodilators and steroids. In view of persistent respiratory symptoms, pulmonary consultation was requested for further input. She
responded well to steroids and bronchodilators and was discharged on Prednisone taper along with Symbicort
Patient reportedly did well for 1 day and then woke up with increased dyspnea and was noted to be hypoxic. She used O2 available at home and required 4 L/min. She was subsequently brought to ED. Work up included elevated WBC count and CXR suggested
possible pulmonary congestion. Clinically she was felt to have PNA and Rocephin/Azithormycin were started. Lactate was mildly elevated, responded to treatment with improvement. Pulmonary consult was requested for further input.
Patient denies any known history of asthma and does not require any ongoing inhaler therapy. She reports that in the past very rarely she has used an inhaler in the setting of catching a cold with shortness of breath. Currently she is denying any
hemoptysis, pleuritic discomfort or purulent expectoration.
No smoking history but exposed to secondhand smoke previously. Denies alcohol.
#1. Acute hypoxic respiratory failure, improved
- Recent COVID-19 treated with Paxlovid, complicated by hospitalization for asthmatic bronchitis, now increased hypoxia, improved, doing well on room air today
- Procalcitonin is negative, discontinued Rocephin. Can continue doxycycline for atypical coverage.
- CT scan negative for pulmonary embolism, no large consolidation noted. Mild right middle lobe tree-in-bud appearance noted which could be related to aspiration, infection, continue atypical coverage with doxycycline
#2. Acute asthmatic bronchitis
- Switched Duoneb to scheduled TID
- Continue Duoneb and IV Steroids
- Continue budesonide, clinically improving
#3. Recent COVID-19, diagnosed at home
- Received Paxlovid as out patient
- Too late in course to benefit from Remdesivir.
Other medical diagnoses:
- HTN
- HLD
- H/o CA breast, s/p mastectomy and radiation with RUL post radiation changes
DVT prophylaxis with Lovenox.
Total time spent on this consultation/encounter __45__ minutes which includes review of history, physical exam, medications, laboratory data, personal review of imaging, extensive review of outpatient records, discussion with care team and
respiratory therapy.
Data:
CXR 04/18/2025: 1. Mild interstitial cardiogenic pulmonary edema.
2. Mild cardiomegaly.
3. Mild to moderate elevation of the anterior right hemidiaphragm.
4. Diffuse bone demineralization.
CXR 03/2025: No acute cardiopulmonary process.
ECHO 01/2023: Estimated ejection fraction is 70-75%. No regional wall motion abnormalities are seen.
Normal right ventricular size and function.
No significant valvular disease.
LHC 02/2012: 1. Nonobstructive coronary atherosclerosis.
2. Normal left ventricular function.
Chest CT 03/2021: No evidence of an acute fracture. No discrete new bony abnormality.
Old posterior left rib fractures. Degenerative disk and joint disease in the spine.
If symptoms continue consider MRI of the thoracic spine to evaluate for cord compression or nerve root impingement.
Increased opacity in the right apex, likely related to post radiation changes. Patient is status post breast cancer, mastectomy and radiation therapy.
No focal airspace process or pleural effusion. No adenopathy.
Subjective Data
-
Date of Service:
Date of Service: April 20, 2025
Subjective:
Patient comfortably lying in bed, on room air, overall feels much improved.
Review of Systems
Genitourinary: Other (No new pulmonary symptoms reported)
Objective Data
Data Reviewed
Vital Signs / I&O / Oxygen:
Vital Signs
Temp Pulse Resp BP Pulse Ox
98.3 F 82 18 142/76 97
04/20/25 07:00 04/20/25 07:49 04/20/25 07:49 04/20/25 07:00 04/20/25 07:49
Intake and Output
04/19/25 04/20/25 04/21/25
06:59 06:59 06:59
Intake Total 960 / 960 900 / 900
Balance 960 / 960 900 / 900
SaO2 97
Nasal Cannula flow liters per 2
minute
Physical Exam
General: Comfortable
HEENT: Normocephalic
Cardiovascular: S1-S2
Respiratory: Clear
GI: Soft and Non Distended
Neurology: Awake, Alert and Oriented
Skin: Warm
Labs/Micro/Reports
Lab Data
04/20/25 08:21
04/19/25 06:54
Microbiology
04/18/25 22:19 Urine Legionella Urinary Antigen - Final
Negative for Legionella pneumophila Serogroup 1 antigen.
A negative result does not rule out the possiblity of
Legionella infection due to other serogroups or species of
Legionella. Clinical correlation is recommended.
04/18/25 22:19 Urine Streptococcus pneumoniae Antigen (M - Final
Negative for Streptococcus pneumoniae antigen.
A negative result does not exclude infection with
Streptococcus pneumoniae. Clinical correlation is
recommended.
04/18/25 18:13 Nasal Swab Influenza Types A & B (KATARZYNA) - Final
Negative for Influenza A & B, NAAT
Negative results must be combined with clinical observations
and patient history.
Nucleic Acid Amplification test (NAAT)performed on the
[employer] platform.
[2025-04-20 15:00] VITALS: BP 134/70
--- NOTE | 2025-04-20 15:33 | CM ---
CM reviewed pt with Dr Dhillon- ready for dc today
Per therapy, no dc needs
Pt will require neb
Her local [facility] does not carry in stock
[facility] can order and be delivered tomorrow
Bedside meeting with pt and dtr on speaker phone/Didi
Pt will utilize her dtr's new nebulizer tonight until delivery tomorrow
IMM verbally reviewed- copy provided
Discharge Disposition- home, no needs, new nebulizer- dtr transport
--- NOTE | 2025-04-20 18:06 | W.DCSUMMARY ---
Documented by User: Adan Lemons DO, Resident 04/20/25 18:41
Discharge Summary
Discharge Data
Date of Admission: 04/18/25
Date of Discharge: 04/20/25
-
Pending Results: No
Hospital Course
Aracelis Mcwilliams is an 89-year-old female with a past medical history of asthma, breast cancer (status post radiation therapy, currently on tamoxifen), hypertension, and hyperlipidemia who presented to the emergency department on 04/18/2025 with
respiratory distress characterized by persistent cough and episodes of low oxygen saturation. The patient had been recently discharged from the hospital on 04/15/2025 after admission for acute postviral bronchitis/acute asthma exacerbation possibly
secondary to COVID. She was started on prednisone and discharged home on room air. The patient returned to the hospital due to increased coughing episodes and hypoxemia. The patient does not use home oxygen, however, her (who was since
) used to use oxygen at home. The patient noted that she was saturating in the 80s despite being on 4 L of oxygen by nasal cannula.
ED COURSE
On the way to the emergency department, the patient was given a nebulizer treatment which seemed to help symptoms. On exam, the patient exhibited audible crackles and the patient appeared fatigued. White blood cell count was 26K (it was 15K on day
of discharge). Chest x-ray read as mild interstitial cardiogenic pulmonary edema however the patient did not examine that way. At time of admission, pneumonia was the main concern so she was admitted and started on an antibiotic course. EKG
showed normal sinus rhythm and was unchanged from September 2024.
HOSPITAL COURSE
The patient was initially admitted and then started on Rocephin and doxycycline. Lactate in the emergency department was mildly elevated at 2.2 and was repeated the next morning with a downtrend to 1.2. Procalcitonin was obtained which was 0.05
effectively ruling out bacterial infection. In addition, a D-dimer done in the emergency department was also elevated at 0.98. A chest CT was ordered which showed no evidence for pulmonary embolism or right heart strain. The radiologist noted a
couple of clusters of small peripheral/tree-in-bud nodules within the right lung compatible with bronchiolitis, likely infectious or inflammatory in nature. Given these findings, and the fact that the patient was clinically improving day by day,
Rocephin was discontinued. Doxycycline was kept on board for atypical coverage. The patient was continued on DuoNebs, steroids, and budesonide. By the final day of her admission, the patient stated that she had not felt better than she had in
approximately 2 weeks. The patient was now off of oxygen and back on room air and saturating at 98%. The patient was discharged home on 04/20/2025.
DISCHARGE RECOMMENDATIONS
Continue nebulizer treatments with albuterol and budesonide twice a day.
Continue doxycycline 100 mg twice a day for 5 more days, for a total antibiotic course of 7 days.
Start a prednisone taper; 40 mg for 2 days, followed by 30 mg for 2 days, followed by 20 mg for 2 days, followed by 10 mg for 2 days, for a total period of 8 days.
Follow-up with your primary care provider in less than 1 week for additional recommendations.
We would consider a repeat complete blood count in 1 week and repeat chest x-ray in 4 to 6 weeks to check for resolution at the discretion of your primary care provider.
Follow-up with the derrick follower in 2 weeks.
Discharge Plan
-
Patient Disposition: Home (Routine Discharge)
Discharge Diagnosis/Procedures: Acute Hypoxic Respiratory Failure Secondary to Acute Bronchitis/Bronchiolitis
Condition: Good
Diet: Regular
Activity: As tolerated
Driving Restrictions: As prior to admission
Bathing Restrictions: None
Blood Work: None
Others Tests: None
Instructions: Acute bronchitis in adults
Referrals:
Cesar Stanley MD [Active, Pulmonary Medicine] - in two to three weeks
Sean Salazar MD [Family Provider, [facility]] - in less than 1 week
Prescriptions:
New
doxycycline hyclate 100 mg Capsule
100 mg PO BID 5 Days Qty: 10 0RF
budesonide 0.25 mg/2 mL Suspension For Nebulization
0.25 mg inhalation R BID 30 Days Qty: 120 0RF
dextromethorphan-guaifenesin 10-100 mg/5 mL Syrup
10 ml PO Q4HPRN PRN (Reason: cough) 7 Days Qty: 237 0RF
albuterol sulfate 1.25 mg/3 mL solution for nebulization
1.25 mg inhalation BID 30 Days Qty: 180 0RF
prednisone 20 mg tablet
See Taper PO DAILY 3 Days Qty: 6 0RF
Taper: Prednisone DC Starting at 40 mg daily
40 mg Daily for 2 Days and 0 Hour
30 mg Daily for 2 Days and 0 Hour
20 mg Daily for 2 Days and 0 Hour
10 mg Daily for 2 Days and 0 Hour
(DME) nebulizers [[employer] XL Nebulizer] Misc
See Rx Instructions .Route Qty: 1 0RF
Rx Instructions:
As directed
(DME) nebulizer accessories Kit
See Rx Instructions .Route Qty: 1 0RF
Rx Instructions:
As directed
Continued
simvastatin 20 MG tablet
20 mg PO DAILY
lisinopril-hydrochlorothiazide 20-25 mg Tablet
1 tab PO DAILY
tamoxifen 20 mg Tablet
20 mg PO DAILY
escitalopram oxalate 10 mg Tablet
10 mg PO DAILY
latanoprost 0.005 % drops
1 drp BOTH EYES HS
zinc acetate 50 mg (zinc) Capsule
50 mg PO DAILY
ascorbic acid (vitamin C) 500 mg Tablet
500 mg PO DAILY
trazodone 50 mg tablet
50 mg PO HS
loratadine 10 mg Tablet
10 mg PO DAILY Qty: 10 0RF
Discontinued
benzonatate 200 mg capsule
200 mg PO TIDPRN PRN (Reason: cough)
ProAir RespiClick 90 mcg/actuation Aerosol Powdr Breath Activated
2 inh INHALATION R Q4HPRN PRN (Reason: cough)
prednisone 10 mg Tablet
10 mg PO DIRECTED
Rx Instructions:
starting 04/15/25 take 30mg daily for 3 day then 20mg daily for 3 day then 10mg daily for 3 day
Delsym 30 mg/5 mL Liquid
15 mg PO DAILYPRN PRN (Reason: cough)
budesonide-formoterol [Symbicort] 80-4.5 mcg/actuation HFA aerosol inhaler
2 puff inhalation R BID
Discharge Orders:
Discharge Patient (As Directed); Ordered 04/20/25
Ordered By: Adan Lemons
Discharge Date and Time
Discharge Date/Time: 04/20/25 16:42
Print Language: YAKUT

Documented by User: Yossi Dhillon DO 04/21/25 09:29
Discharge Summary
Discharge Data
Date of Admission: 04/18/25
Date of Discharge: 04/20/25
Total time spent discharging patient (in min): 34
Discharge Plan
-
Patient Disposition: Home (Routine Discharge)
Discharge Diagnosis/Procedures: Acute Hypoxic Respiratory Failure Secondary to Acute Bronchitis/Bronchiolitis
Condition: Good
Diet: Regular
Activity: As tolerated
Driving Restrictions: As prior to admission
Bathing Restrictions: None
Blood Work: None
Others Tests: None
Instructions: Acute bronchitis in adults
Referrals:
Cesar Stanley MD [Active, Pulmonary Medicine] - in two to three weeks
Sean Salazar MD [Family Provider, Family Practice] - in less than 1 week
Prescriptions:
New
doxycycline hyclate 100 mg Capsule
100 mg PO BID 5 Days Qty: 10 0RF
budesonide 0.25 mg/2 mL Suspension For Nebulization
0.25 mg inhalation R BID 30 Days Qty: 120 0RF
dextromethorphan-guaifenesin 10-100 mg/5 mL Syrup
10 ml PO Q4HPRN PRN (Reason: cough) 7 Days Qty: 237 0RF
albuterol sulfate 1.25 mg/3 mL solution for nebulization
1.25 mg inhalation BID 30 Days Qty: 180 0RF
prednisone 20 mg tablet
See Taper PO DAILY 3 Days Qty: 6 0RF
Taper: Prednisone DC Starting at 40 mg daily
40 mg Daily for 2 Days and 0 Hour
30 mg Daily for 2 Days and 0 Hour
20 mg Daily for 2 Days and 0 Hour
10 mg Daily for 2 Days and 0 Hour
(DME) nebulizers [[employer] XL Nebulizer] Misc
See Rx Instructions .Route Qty: 1 0RF
Rx Instructions:
As directed
(DME) nebulizer accessories Kit
See Rx Instructions .Route Qty: 1 0RF
Rx Instructions:
As directed
Continued
simvastatin 20 MG tablet
20 mg PO DAILY
lisinopril-hydrochlorothiazide 20-25 mg Tablet
1 tab PO DAILY
tamoxifen 20 mg Tablet
20 mg PO DAILY
escitalopram oxalate 10 mg Tablet
10 mg PO DAILY
latanoprost 0.005 % drops
1 drp BOTH EYES HS
zinc acetate 50 mg (zinc) Capsule
50 mg PO DAILY
ascorbic acid (vitamin C) 500 mg Tablet
500 mg PO DAILY
trazodone 50 mg tablet
50 mg PO HS
loratadine 10 mg Tablet
10 mg PO DAILY Qty: 10 0RF
Discontinued
benzonatate 200 mg capsule
200 mg PO TIDPRN PRN (Reason: cough)
ProAir RespiClick 90 mcg/actuation Aerosol Powdr Breath Activated
2 inh INHALATION R Q4HPRN PRN (Reason: cough)
prednisone 10 mg Tablet
10 mg PO DIRECTED
Rx Instructions:
starting 04/15/25 take 30mg daily for 3 day then 20mg daily for 3 day then 10mg daily for 3 day
Delsym 30 mg/5 mL Liquid
15 mg PO DAILYPRN PRN (Reason: cough)
budesonide-formoterol [Symbicort] 80-4.5 mcg/actuation HFA aerosol inhaler
2 puff inhalation R BID
Discharge Orders:
Discharge Patient (As Directed); Ordered 04/20/25
Ordered By: Adan Lemons
Discharge Date and Time
Discharge Date/Time: 04/20/25 16:42
Print Language: YAKUT
== END 2025-04-20 16:42 | disposition home or self-care (01) | DRG 193 ==
LOC: 4 WEST ACU 17:31
PROVIDERS: Physician Assistant; ADMITTING PHYSICIAN Internal Medicine; ATTENDING PHYSICIAN Internal Medicine; CONSULT PHYSICIAN Internal Medicine; EMERGENCY PHYSICIAN Emergency Medicine; FAMILY PHYSICIAN Family Medicine
DX: J18.9 Pneumonia, unspecified organism (principal); J96.01 Acute respiratory failure with hypoxia; I50.1 Left ventricular failure, unspecified; I11.0 Hypertensive heart disease with heart failure; Z66 Do not resuscitate; Z85.3 Personal history of malignant neoplasm of breast; Z77.22 Contact with and (suspected) exposure to environmental tobacco smoke (acute) (chronic); Z86.16 Personal history of COVID-19; J45.998 Other asthma; E78.00 Pure hypercholesterolemia, unspecified
CPT/HCPCS: 71046; 71275; 80048; 80053; 83605; 84145; 85025; 85027; 85379; 87449; 87502; 87811; 87899; 93005; 94640; 96365; 96375; 97162; 99285; Q9967